=== PATIENT | female | born 1940 | race Caucasian/White ===

== ENCOUNTER 2016-05-30 13:35 | Inpatient (IN) | payer MEDICARE, MEDICAID ==
--- NOTE | 2016-05-30 13:42 | ED Physician Chart ---
Chief Complaint/HPI - Patient Information Date Seen:: 05/30/16 Time Seen:: 13:36 Chief Complaint:: agitation History of Present Illness:: 75-year-old female with acute, worsening, moderate to severe, agitation since yesterday. Has associated uncooperative behavior. Limited history due to patient's underlying psychosis and dementia History provided by EMS and EMS run sheet Historian:: EMS Review:: Nurse's Note Reviewed, EMS run form Reviewed, Transfer documents Reviewed Review of Systems - Review of Systems Other: Complete system review otherwise unremarkable except as noted in history of present illness. Past Medical History - Past Medical History Past Medical History: CVA/TIA, Dementia Family History: None Social History: Non Smoker, No Alcohol, No Drug Use, Care Facility Surgical History: None Psychiatricy History: Dementia Medication: Reviewed Family Medical History - Family Member Mother History Unknown: Yes Labs/Radiology/EKG Results - Lab Results Results: Lab Results 05/30/16 05/30/16 05/30/16 Range/Units 13:55 13:55 13:55 WBC 6.3 (4.8-10.8) Th/cmm RBC 4.49 (3.80-5.20) Mil/cmm Hgb 13.0 (11.7-16.1) gm/dL Hct 39.4 (35.0-45.0) % MCV 87.7 (81-100) fl MCH 28.9 (27.0-31.0) pg MCHC Differential 33.0 (28.0-36.0) pg RDW 12.6 (11.5-20.0) % Plt Count 256 (150-400) Th/cmm MPV 8.5 fl Neutrophils % 60.7 (40.0-80.0) % Lymphocytes % 31.0 (20.0-50.0) % Monocytes % 6.5 (2.0-10.0) % Eosinophils % 0.8 (0.0-5.0) % Basophils % 1.0 (0.0-2.0) % Sodium 135 L (136-145) mEq/L Potassium 3.6 (3.5-5.1) mEq/L Chloride 106 (98-107) mEq/L Carbon Dioxide 29.0 (21.0-31.0) mEq/L Anion Gap 3.6 L (7.0-16.0) BUN 19 (7-25) mg/dL Creatinine 0.9 (0.6-1.2) mg/dL Est GFR ( Amer) TNP Est GFR (Non-Af Amer) TNP BUN/Creatinine Ratio 21.1 Glucose 107 H (70-105) mg/dL POC Glucose (70 - 105) MG/DL Whole Bld Lactic Acid 0.72 (0.60-1.99) mmol/L Calcium 9.4 (8.6-10.3) mg/dL Total Bilirubin 0.6 (0.3-1.0) mg/dL AST 17 (13-39) U/L ALT 12 (7-52) U/L Alkaline Phosphatase 79 (34-104) U/L Total Protein 7.6 (6.0-8.3) gm/dL Albumin 4.1 (3.7-5.3) gm/dL Globulin 3.5 gm/dL Albumin/Globulin Ratio 1.2 (1.0-1.8) Urine Source Urine Color Urine Clarity (CLEAR) Urine pH Ur Specific [place] (1.005-1.030) Urine Protein (NEGATIVE) mg/dL Urine Glucose (UA) (NEGATIVE) mg/dL Urine Ketones (NEGATIVE) mg/dL Urine Blood (NEGATIVE) Urine Nitrate (NEGATIVE) Urine Bilirubin (NEGATIVE) Urine Urobilinogen (0.2 - 1.0) E.U./dL Ur Leukocyte Esterase (NEGATIVE) Urine RBC (0-5) /hpf Urine WBC (0-5) /hpf Ur Epithelial Cells (FEW) /lpf Urine Bacteria (NONE SEEN) /hpf Urine Mucus (FEW) /lpf Urine Opiates Screen (NEGATIVE) Ur Barbiturates Screen (NEGATIVE) Ur Phencyclidine Scrn (NEGATIVE) Amphetamines Screen (NEGATIVE) U Methamphetamines Scrn (NEGATIVE) U Benzodiazepines Scrn (NEGATIVE) U Cocaine Metab Screen (NEGATIVE) U Cannabinoids Screen (NEGATIVE) 05/30/16 05/30/16 05/30/16 Range/Units 13:55 14:08 14:08 WBC (4.8-10.8) Th/cmm RBC (3.80-5.20) Mil/cmm Hgb (11.7-16.1) gm/dL Hct (35.0-45.0) % MCV (81-100) fl MCH (27.0-31.0) pg MCHC Differential (28.0-36.0) pg RDW (11.5-20.0) % Plt Count (150-400) Th/cmm MPV fl Neutrophils % (40.0-80.0) % Lymphocytes % (20.0-50.0) % Monocytes % (2.0-10.0) % Eosinophils % (0.0-5.0) % Basophils % (0.0-2.0) % Sodium (136-145) mEq/L Potassium (3.5-5.1) mEq/L Chloride (98-107) mEq/L Carbon Dioxide (21.0-31.0) mEq/L Anion Gap (7.0-16.0) BUN (7-25) mg/dL Creatinine (0.6-1.2) mg/dL Est GFR ( Amer) Est GFR (Non-Af Amer) BUN/Creatinine Ratio Glucose (70-105) mg/dL POC Glucose 116 H (70 - 105) MG/DL Whole Bld Lactic Acid (0.60-1.99) mmol/L Calcium (8.6-10.3) mg/dL Total Bilirubin (0.3-1.0) mg/dL AST (13-39) U/L ALT (7-52) U/L Alkaline Phosphatase (34-104) U/L Total Protein (6.0-8.3) gm/dL Albumin (3.7-5.3) gm/dL Globulin gm/dL Albumin/Globulin Ratio (1.0-1.8) Urine Source CATH Urine Color YELLOW Urine Clarity CLEAR (CLEAR) Urine pH 5.5 Ur Specific [place] 1.025 (1.005-1.030) Urine Protein NEGATIVE (NEGATIVE) mg/dL Urine Glucose (UA) NEGATIVE (NEGATIVE) mg/dL Urine Ketones NEGATIVE (NEGATIVE) mg/dL Urine Blood NEGATIVE (NEGATIVE) Urine Nitrate NEGATIVE (NEGATIVE) Urine Bilirubin NEGATIVE (NEGATIVE) Urine Urobilinogen 0.2 (0.2 - 1.0) E.U./dL Ur Leukocyte Esterase NEGATIVE (NEGATIVE) Urine RBC NONE SEEN (0-5) /hpf Urine WBC 0-2 (0-5) /hpf Ur Epithelial Cells OCCASIONAL (FEW) /lpf Urine Bacteria FEW (NONE SEEN) /hpf Urine Mucus FEW (FEW) /lpf Urine Opiates Screen NEGATIVE (NEGATIVE) Ur Barbiturates Screen NEGATIVE (NEGATIVE) Ur Phencyclidine Scrn NEGATIVE (NEGATIVE) Amphetamines Screen NEGATIVE (NEGATIVE) U Methamphetamines Scrn NEGATIVE (NEGATIVE) U Benzodiazepines Scrn NEGATIVE (NEGATIVE) U Cocaine Metab Screen NEGATIVE (NEGATIVE) U Cannabinoids Screen NEGATIVE (NEGATIVE) ED Septic Shock - . Is Septic Shock (SBP<90, OR Lactate>4 mmol\L) present?: No Reassessment (Disposition) - Reassessment Reassessment:: Blood pressure was noted to be elevated over 120/80. There were no signs of hypertension. Discussed the findings with the patient and recommended that the patient follow up with the primary care physician regarding the elevated blood pressure. Patient cleared for admission to the geriatric psych unit Reassessment Condition:: Unchanged - Diagnosis Diagnosis:: acute Psychosis, NOS Elevated blood pressure without the diagnosis hypertension - Aftercare/Follow up Instructions Aftercare/Follow-Up Instructions:: Counseled pt regarding lab results/diagnosis & need follow up, Refer to Discharge Instructions - Patient Disposition Discharge/Transfer:: Acute Care w/in this hosp Admitted to:: [facility] Admitting Medical Physician:: Etienne Panda Admitting Psych Physician:: Faith Chen Time:: 15:32 Condition at Disposition:: Stable ED Discharge Plan - Patient Disposition Admit/Discharge/Transfer: Acute Care w/in this hosp
[2016-05-30 14:08] LABS: % EOSINOPHILS 0.8 % (0.0-5.0); % MONOCYTES 6.5 % (2.0-10.0); % NEUTROPHILS 60.7 % (40.0-80.0); HEMATOCRIT 39.4 % (35.0-45.0); MEAN CELL VOLUME 87.7 fl (81-100); MEAN CORPUSCULAR HEMOGLOBIN 28.9 pg (27.0-31.0); MEAN PLATELET VOLUME 8.5 fl; NEUTROPHILE ABSOLUTE 3.7 Th/cmm (1.8-8.0); PLATELET COUNT 256 Th/cmm (150-400); RED BLOOD COUNT 4.49 Mil/cmm (3.80-5.20); RED CELL DISTRIBUTION WIDTH 12.6 % (11.5-20.0); WHITE BLOOD COUNT 6.3 Th/cmm (4.8-10.8)
[2016-05-30 14:25] LABS: ALB/GLOB RATIO 1.2 (1.0-1.8); ALKALINE PHOSPHATASE 79 U/L (34-104); ANION GAP 3.6 (7.0-16.0); BILIRUBIN,TOTAL 0.6 mg/dL (0.3-1.0); BUN - UREA NITROGEN 19 mg/dL (7-25); BUN/CREATININE RATIO 21.1; CALCIUM SERUM 9.4 mg/dL (8.6-10.3); CHLORIDE 106 mEq/L (98-107); CREATININE - SERUM 0.9 mg/dL (0.6-1.2); GLUCOSE 107 mg/dL (70-105); POTASSIUM SERUM 3.6 mEq/L (3.5-5.1); SGOT 17 U/L (13-39); SGPT/ALT 12 U/L (7-52); SODIUM SERUM 135 mEq/L (136-145)
[2016-05-30 14:56] LABS: URINE BILIRUBIN NEGATIVE (NEGATIVE); URINE BLOOD NEGATIVE (NEGATIVE); URINE COLOR YELLOW; URINE GLUCOSE (UA) NEGATIVE (NEGATIVE); URINE KETONE NEGATIVE (NEGATIVE); URINE PH 5.5; URINE PROTEIN NEGATIVE (NEGATIVE); URINE UROBILINOGEN 0.2 E.U./dL (0.2 - 1.0)
[2016-05-30 14:57] LABS: URINE BACTERIA FEW /hpf (NONE SEEN); URINE EPITHELIAL CELLS OCCASIONAL /lpf (FEW); URINE RBC NONE SEEN /hpf (0-5); URINE WBC 0-2 /hpf (0-5)
[2016-05-30 15:03] LABS: AMPHETAMINE URINE NEGATIVE (NEGATIVE); BARBITURATES URINE NEGATIVE (NEGATIVE)
[2016-05-30 18:08] VITALS: BP 126/81
--- NOTE | 2016-05-30 18:49 | History & Physical ---
CHIEF COMPLAINT: Increased agitation. HISTORY OF PRESENT ILLNESS: This is a 75-year-old female resident of ____ who was sent here through the Emergency Room with a chief complaint of increased agitation. REVIEW OF SYSTEMS: GENERAL: The patient has no signs and symptoms of decreased weight or any weakness. HEENT: Denies any headache. EYES: Denies any eye pain. THROAT: Denies any throat pain. NECK: Denies any nuchal rigidity. CARDIOVASCULAR: Denies any chest pain, denies any palpitation. PULMONARY: Denies any shortness of breath and no coughing. GASTROINTESTINAL: No abdominal pain, no guarding, no diarrhea and no constipation. GENITOURINARY: No dysuria. MUSCULOSKELETAL: No muscle weakness and no edema. PAST MEDICAL HISTORY: Includes dementia, hypertension and insomnia. PAST SURGICAL HISTORY: Unremarkable. FAMILY HISTORY: Unremarkable. SOCIAL HISTORY: The patient came in from a long-term facility. PSYCHIATRIC HISTORY: Includes dementia and insomnia. PHYSICAL EXAMINATION: GENERAL: The patient appears to be well hydrated female. HEENT: Head is atraumatic and normocephalic. Eyes: Bilateral conjunctivae are clear for any injection. Bilateral pupils equally round and reactive to left and accommodation. Nose: Bilateral nares are patent. Throat: No deviation. NECK: No JVD and supple. CARDIOVASCULAR: S1 and S2 heard without murmur. PULMONARY: Clear to auscultation. GASTROINTESTINAL: Soft and nontender, positive bowel sounds without guarding. GENITOURINARY: Negative for CVA tenderness. MUSCULOSKELETAL: No edema and no weakness noted. ASSESSMENT: 1. Acute psychosis. 2. Insomnia. 3. Acute danger to self. 4. Gravely disabled. 5. Hypertension. PLAN: We will keep the patient as inpatient psych unit. The patient is currently on a 5150 hold due to gravely disabled. We will follow with psychiatrist to monitor the patient's behavior and medication adjustment. [facility]# [id number]
--- NOTE | 2016-05-30 21:01 | Admit Criteria Form ---
Admit Criteria Forms - Admit Criteria Diagnosis: PSYCHIATRIC DISORDERS Clinical Indications for Inpatient Care (Place 'X' for any and all applicable criteria): Ongoing inpatient care may be needed for ANY ONE of the following(1)(2)(3)(4)(6) (7)(8): [ ]I. Danger to self or others not manageable at lower level of care. [ ]II. Grave disability (eg, inability to perform self care necessary at lower level of care) [ ]III. Agitation or inappropriate behavior interfering with care for primary condition (eg, attempting to discontinue lines or drains prematurely, unable to cooperate with respiratory care) [X]IV. Severe disability or disorder indicated by ALL of the following: [X]a) Severe behavioral health disorder-related symptoms or condition indicated by ANY ONE of the following: [ ]i) Severe problem with cognition, memory, judgment, or impulse control [X]ii) Severe clinical manifestations (eg, hallucinations, delusions, other acute psychotic symptoms, liat, extreme agitation or anxiety) [X]b) Patient management at lower level of care is not feasible until acute intervention or modification is initiated. Extended stay beyond goal length of stay for the primary condition may be indicated when ANY ONE of the following is present: (1)(2)(3)(4): [ ]a) Patient is a danger to self or others and not manageable at lower level of care. [ ]b) Behavior crisis management, including physical or chemical restraints, is required and is not available at a lower level of care. [ ]c) Behavioral symptoms (e.g., agitation, somnolence, inappropriate behavior) are present, and are not manageable at a lower level of care. [ ]d) Patient cannot understand follow-up treatment and crisis plan. [ ]e) Provider and supports are not sufficiently available at lower level of care. [ ]f) Patient cannot participate (e.g., verify absence of plan for harm) and is in needed of monitoring. The original [facility] content created by [facility] has been revised. The portions of the content which have been revised are identified through the use of italic text or in bold, and [facility] has neither reviewed nor approved the modified material. All other unmodified content is copyright [facility]. Please see references footnoted in the original [facility] edition 2016 Admit Criteria Met?: Yes
--- NOTE | 2016-05-31 20:22 | General Progress Note ---
Subjective - Review of Systems Service Date: 05/31/16 Subjective: pt is confused Objective - Results Result Diagrams: 05/30/16 13:55 05/30/16 13:55 Recent Labs: Laboratory Last Values WBC 6.3 Th/cmm (4.8-10.8) 05/30/16 13:55 RBC 4.49 Mil/cmm (3.80-5.20) 05/30/16 13:55 Hgb 13.0 gm/dL (11.7-16.1) 05/30/16 13:55 Hct 39.4 % (35.0-45.0) 05/30/16 13:55 MCV 87.7 fl (81-100) 05/30/16 13:55 MCH 28.9 pg (27.0-31.0) 05/30/16 13:55 MCHC Differential 33.0 pg (28.0-36.0) 05/30/16 13:55 RDW 12.6 % (11.5-20.0) 05/30/16 13:55 Plt Count 256 Th/cmm (150-400) 05/30/16 13:55 MPV 8.5 fl 05/30/16 13:55 Neutrophils % 60.7 % (40.0-80.0) 05/30/16 13:55 Lymphocytes % 31.0 % (20.0-50.0) 05/30/16 13:55 Monocytes % 6.5 % (2.0-10.0) 05/30/16 13:55 Eosinophils % 0.8 % (0.0-5.0) 05/30/16 13:55 Basophils % 1.0 % (0.0-2.0) 05/30/16 13:55 Sodium 135 mEq/L (136-145) L 05/30/16 13:55 Potassium 3.6 mEq/L (3.5-5.1) 05/30/16 13:55 Chloride 106 mEq/L (98-107) 05/30/16 13:55 Carbon Dioxide 29.0 mEq/L (21.0-31.0) 05/30/16 13:55 Anion Gap 3.6 (7.0-16.0) L 05/30/16 13:55 BUN 19 mg/dL (7-25) 05/30/16 13:55 Creatinine 0.9 mg/dL (0.6-1.2) 05/30/16 13:55 Est GFR ( Amer) TNP 05/30/16 13:55 Est GFR (Non-Af Amer) TNP 05/30/16 13:55 BUN/Creatinine Ratio 21.1 05/30/16 13:55 Glucose 107 mg/dL (70-105) H 05/30/16 13:55 POC Glucose 116 MG/DL (70 - 105) H 05/30/16 13:55 Whole Bld Lactic Acid 0.72 mmol/L (0.60-1.99) 05/30/16 13:55 Calcium 9.4 mg/dL (8.6-10.3) 05/30/16 13:55 Total Bilirubin 0.6 mg/dL (0.3-1.0) 05/30/16 13:55 AST 17 U/L (13-39) 05/30/16 13:55 ALT 12 U/L (7-52) 05/30/16 13:55 Alkaline Phosphatase 79 U/L (34-104) 05/30/16 13:55 Total Protein 7.6 gm/dL (6.0-8.3) 05/30/16 13:55 Albumin 4.1 gm/dL (3.7-5.3) 05/30/16 13:55 Globulin 3.5 gm/dL 05/30/16 13:55 Albumin/Globulin Ratio 1.2 (1.0-1.8) 05/30/16 13:55 Urine Source CATH 05/30/16 14:08 Urine Color YELLOW 05/30/16 14:08 Urine Clarity CLEAR (CLEAR) 05/30/16 14:08 Urine pH 5.5 05/30/16 14:08 Ur Specific [place] 1.025 (1.005-1.030) 05/30/16 14:08 Urine Protein NEGATIVE mg/dL (NEGATIVE) 05/30/16 14:08 Urine Glucose (UA) NEGATIVE mg/dL (NEGATIVE) 05/30/16 14:08 Urine Ketones NEGATIVE mg/dL (NEGATIVE) 05/30/16 14:08 Urine Blood NEGATIVE (NEGATIVE) 05/30/16 14:08 Urine Nitrate NEGATIVE (NEGATIVE) 05/30/16 14:08 Urine Bilirubin NEGATIVE (NEGATIVE) 05/30/16 14:08 Urine Urobilinogen 0.2 E.U./dL (0.2 - 1.0) 05/30/16 14:08 Ur Leukocyte Esterase NEGATIVE (NEGATIVE) 05/30/16 14:08 Urine RBC NONE SEEN /hpf (0-5) 05/30/16 14:08 Urine WBC 0-2 /hpf (0-5) 05/30/16 14:08 Ur Epithelial Cells OCCASIONAL /lpf (FEW) 05/30/16 14:08 Urine Bacteria FEW /hpf (NONE SEEN) 05/30/16 14:08 Urine Mucus FEW /lpf (FEW) 05/30/16 14:08 Urine Opiates Screen NEGATIVE (NEGATIVE) 05/30/16 14:08 Ur Barbiturates Screen NEGATIVE (NEGATIVE) 05/30/16 14:08 Ur Phencyclidine Scrn NEGATIVE (NEGATIVE) 05/30/16 14:08 Amphetamines Screen NEGATIVE (NEGATIVE) 05/30/16 14:08 U Methamphetamines Scrn NEGATIVE (NEGATIVE) 05/30/16 14:08 U Benzodiazepines Scrn NEGATIVE (NEGATIVE) 05/30/16 14:08 U Cocaine Metab Screen NEGATIVE (NEGATIVE) 05/30/16 14:08 U Cannabinoids Screen NEGATIVE (NEGATIVE) 05/30/16 14:08 - Physical Exam Vitals and I&O: Vital Signs Temp 97.7 F 05/31/16 19:52 Pulse 74 05/31/16 19:52 Resp 20 05/31/16 19:52 BP 145/76 05/31/16 19:52 Pulse Ox 98 05/31/16 19:52 Intake & Output 05/31/16 05/31/16 06/01/16 06:59 18:59 06:59 Intake Total 120 1400 240 Output Total 5 Balance 120 1395 240 Intake: Oral 120 1400 240 Output: Urine 5 Other: # Voids 3 4 # Bowel Movements 1 0 Active Medications: Current Medications Memantine (Namenda) 10 mg PO BID [facility] Stop: 07/30/16 11:14 Last Admin: 05/31/16 15:53 Dose: Not Given Ondansetron HCl (Zofran Odt) 4 mg PO Q6H PRN PRN Reason: Nausea / Vomiting Stop: 07/29/16 21:07 Trazodone HCl (Desyrel) 50 mg PO HS NANCY PRN Reason: Protocol Stop: 07/30/16 20:59 General: Alert, Other (confused) Neck: Supple Cardiovascular: Regular rate, Normal S1 Lungs: Clear to auscultation Abdomen: Bowel sounds Neurological: Normal gait Psych/Mental Status: Mental status NL, Other (confused) Assessment/Plan - Problem List Patient Problems: All Active Problems INCREASED AGITATION AND AGGRESSION (Acute) Psychosis (Acute) F29 psychosis (Acute) - Plan Plan: as per psych
--- NOTE | 2016-05-31 22:09 | Psychosocial Evaluation ---
PSYCHIATRIC INITIAL EVALUATION AND MENTAL STATUS EXAMINATION PHYSICIAN: Faith Chen M.D. CHIEF COMPLAINT: Confusion and agitation. HISTORY OF PRESENT ILLNESS: The patient is a 75-year-old female who resides in [facility]. The patient has been confused and has been easily agitated. The patient has not been recognizing her son lately and has been thinking him different person. She also has been thinking that the [facility] is her home. The patient also has been agitated with the staff when they tried to help her with her ADLs and has been increasingly irritable and in angry mood. The patient also has been feeling angry for no apparent reason and at times has been mumbling in [place] language ____ herself. The patient also has been depressed. She also has been refusing care and getting angry and agitated when the staff tries to help with her basic needs. PAST PSYCHIATRIC HISTORY: The patient has history of dementia and has been taking Namenda 5 mg twice a day. She also has a history of depression, but not taking any antidepressant medications. PAST MEDICAL HISTORY: The patient has history of osteoarthritis. FAMILY PSYCHIATRIC HISTORY: Not known. SOCIAL HISTORY: The patient lives in [facility]. No known alcohol or any street drug use. ALLERGIES: Penicillin. MENTAL STATUS EXAMINATION: The patient appears her stated age. Anxious. Speaks [place] mainly. Disheveled and confused. The staff helped with translation. The patient denied auditory or visual hallucinations, but seems to be actively responding to stimuli. The patient gets agitated with the questions and became uncooperative after a little bit of time. The patient denied suicidal or homicidal ideations. The patient is alert, but seems to be disoriented to time, place, person and situation. Impaired immediate and recent memory, but intact remote memory. Poor insight. Poor judgment. She seems to be of average intelligence based on her ____. ASSESSMENT: PRIMARY DIAGNOSIS: Unspecified psychosis. SECONDARY DIAGNOSIS: Dementia, moderate and severe with psychotic features. TREATMENT PLAN: We will monitor the patient's behavior closely. We will increase Namenda to 10 mg everyday. We will work on her poor impulse control and we will continue to follow up closely. ESTIMATED LENGTH OF STAY: 7-10 days. THE PATIENT'S STRENGTHS AND WEAKNESSES: The patient's strength is not clear at this time except that she has supportive family. Weakness is her poor impulse control and her confusion and dementia. AFTER DISCHARGE PLAN: Outpatient treatment and followup will continue as an outpatient. CRITERIA FOR DISCHARGE: The patient will not be confused or agitated and will stabilize psychotropic medications and will establish outpatient treatment plans. [facility]# [id number]
--- NOTE | 2016-06-01 09:10 | General Progress Note ---
Subjective - Review of Systems Events since last encounter: no change Subjective: pt is confused Objective - Results Result Diagrams: 05/30/16 13:55 05/30/16 13:55 Recent Labs: Laboratory Last Values WBC 6.3 Th/cmm (4.8-10.8) 05/30/16 13:55 RBC 4.49 Mil/cmm (3.80-5.20) 05/30/16 13:55 Hgb 13.0 gm/dL (11.7-16.1) 05/30/16 13:55 Hct 39.4 % (35.0-45.0) 05/30/16 13:55 MCV 87.7 fl (81-100) 05/30/16 13:55 MCH 28.9 pg (27.0-31.0) 05/30/16 13:55 MCHC Differential 33.0 pg (28.0-36.0) 05/30/16 13:55 RDW 12.6 % (11.5-20.0) 05/30/16 13:55 Plt Count 256 Th/cmm (150-400) 05/30/16 13:55 MPV 8.5 fl 05/30/16 13:55 Neutrophils % 60.7 % (40.0-80.0) 05/30/16 13:55 Lymphocytes % 31.0 % (20.0-50.0) 05/30/16 13:55 Monocytes % 6.5 % (2.0-10.0) 05/30/16 13:55 Eosinophils % 0.8 % (0.0-5.0) 05/30/16 13:55 Basophils % 1.0 % (0.0-2.0) 05/30/16 13:55 Sodium 135 mEq/L (136-145) L 05/30/16 13:55 Potassium 3.6 mEq/L (3.5-5.1) 05/30/16 13:55 Chloride 106 mEq/L (98-107) 05/30/16 13:55 Carbon Dioxide 29.0 mEq/L (21.0-31.0) 05/30/16 13:55 Anion Gap 3.6 (7.0-16.0) L 05/30/16 13:55 BUN 19 mg/dL (7-25) 05/30/16 13:55 Creatinine 0.9 mg/dL (0.6-1.2) 05/30/16 13:55 Est GFR ( Amer) TNP 05/30/16 13:55 Est GFR (Non-Af Amer) TNP 05/30/16 13:55 BUN/Creatinine Ratio 21.1 05/30/16 13:55 Glucose 107 mg/dL (70-105) H 05/30/16 13:55 POC Glucose 116 MG/DL (70 - 105) H 05/30/16 13:55 Whole Bld Lactic Acid 0.72 mmol/L (0.60-1.99) 05/30/16 13:55 Calcium 9.4 mg/dL (8.6-10.3) 05/30/16 13:55 Total Bilirubin 0.6 mg/dL (0.3-1.0) 05/30/16 13:55 AST 17 U/L (13-39) 05/30/16 13:55 ALT 12 U/L (7-52) 05/30/16 13:55 Alkaline Phosphatase 79 U/L (34-104) 05/30/16 13:55 Total Protein 7.6 gm/dL (6.0-8.3) 05/30/16 13:55 Albumin 4.1 gm/dL (3.7-5.3) 05/30/16 13:55 Globulin 3.5 gm/dL 05/30/16 13:55 Albumin/Globulin Ratio 1.2 (1.0-1.8) 05/30/16 13:55 Urine Source CATH 05/30/16 14:08 Urine Color YELLOW 05/30/16 14:08 Urine Clarity CLEAR (CLEAR) 05/30/16 14:08 Urine pH 5.5 05/30/16 14:08 Ur Specific [place] 1.025 (1.005-1.030) 05/30/16 14:08 Urine Protein NEGATIVE mg/dL (NEGATIVE) 05/30/16 14:08 Urine Glucose (UA) NEGATIVE mg/dL (NEGATIVE) 05/30/16 14:08 Urine Ketones NEGATIVE mg/dL (NEGATIVE) 05/30/16 14:08 Urine Blood NEGATIVE (NEGATIVE) 05/30/16 14:08 Urine Nitrate NEGATIVE (NEGATIVE) 05/30/16 14:08 Urine Bilirubin NEGATIVE (NEGATIVE) 05/30/16 14:08 Urine Urobilinogen 0.2 E.U./dL (0.2 - 1.0) 05/30/16 14:08 Ur Leukocyte Esterase NEGATIVE (NEGATIVE) 05/30/16 14:08 Urine RBC NONE SEEN /hpf (0-5) 05/30/16 14:08 Urine WBC 0-2 /hpf (0-5) 05/30/16 14:08 Ur Epithelial Cells OCCASIONAL /lpf (FEW) 05/30/16 14:08 Urine Bacteria FEW /hpf (NONE SEEN) 05/30/16 14:08 Urine Mucus FEW /lpf (FEW) 05/30/16 14:08 Urine Opiates Screen NEGATIVE (NEGATIVE) 05/30/16 14:08 Ur Barbiturates Screen NEGATIVE (NEGATIVE) 05/30/16 14:08 Ur Phencyclidine Scrn NEGATIVE (NEGATIVE) 05/30/16 14:08 Amphetamines Screen NEGATIVE (NEGATIVE) 05/30/16 14:08 U Methamphetamines Scrn NEGATIVE (NEGATIVE) 05/30/16 14:08 U Benzodiazepines Scrn NEGATIVE (NEGATIVE) 05/30/16 14:08 U Cocaine Metab Screen NEGATIVE (NEGATIVE) 05/30/16 14:08 U Cannabinoids Screen NEGATIVE (NEGATIVE) 05/30/16 14:08 - Physical Exam Vitals and I&O: Vital Signs Temp 98.2 F 06/01/16 05:51 Pulse 84 06/01/16 05:51 Resp 20 06/01/16 05:51 BP 103/63 06/01/16 05:51 Pulse Ox 94 06/01/16 05:51 Intake & Output 05/31/16 06/01/16 06/01/16 18:59 06:59 18:59 Intake Total 1400 240 Output Total 5 Balance 1395 240 Intake: Oral 1400 240 Output: Urine 5 Other: # Voids 2 # Bowel Movements 1 0 Active Medications: Current Medications Memantine (Namenda) 10 mg PO BID [facility] Stop: 07/30/16 11:14 Last Admin: 05/31/16 15:53 Dose: Not Given Ondansetron HCl (Zofran Odt) 4 mg PO Q6H PRN PRN Reason: Nausea / Vomiting Stop: 07/29/16 21:07 Trazodone HCl (Desyrel) 50 mg PO HS NANCY PRN Reason: Protocol Stop: 07/30/16 20:59 Last Admin: 05/31/16 20:39 Dose: 50 mg General: No acute distress HEENT: Atraumatic Neck: Supple Cardiovascular: Regular rate Abdomen: Bowel sounds Assessment/Plan - Problem List Patient Problems: All Active Problems INCREASED AGITATION AND AGGRESSION (Acute) Psychosis (Acute) F29 psychosis (Acute) - Plan Plan: as per psych as problems arise
--- NOTE | 2016-06-02 12:03 | General Progress Note ---
Subjective - Review of Systems Events since last encounter: no distress Subjective: pt is confused Objective - Results Result Diagrams: 05/30/16 13:55 05/30/16 13:55 Recent Labs: Laboratory Last Values WBC 6.3 Th/cmm (4.8-10.8) 05/30/16 13:55 RBC 4.49 Mil/cmm (3.80-5.20) 05/30/16 13:55 Hgb 13.0 gm/dL (11.7-16.1) 05/30/16 13:55 Hct 39.4 % (35.0-45.0) 05/30/16 13:55 MCV 87.7 fl (81-100) 05/30/16 13:55 MCH 28.9 pg (27.0-31.0) 05/30/16 13:55 MCHC Differential 33.0 pg (28.0-36.0) 05/30/16 13:55 RDW 12.6 % (11.5-20.0) 05/30/16 13:55 Plt Count 256 Th/cmm (150-400) 05/30/16 13:55 MPV 8.5 fl 05/30/16 13:55 Neutrophils % 60.7 % (40.0-80.0) 05/30/16 13:55 Lymphocytes % 31.0 % (20.0-50.0) 05/30/16 13:55 Monocytes % 6.5 % (2.0-10.0) 05/30/16 13:55 Eosinophils % 0.8 % (0.0-5.0) 05/30/16 13:55 Basophils % 1.0 % (0.0-2.0) 05/30/16 13:55 Sodium 135 mEq/L (136-145) L 05/30/16 13:55 Potassium 3.6 mEq/L (3.5-5.1) 05/30/16 13:55 Chloride 106 mEq/L (98-107) 05/30/16 13:55 Carbon Dioxide 29.0 mEq/L (21.0-31.0) 05/30/16 13:55 Anion Gap 3.6 (7.0-16.0) L 05/30/16 13:55 BUN 19 mg/dL (7-25) 05/30/16 13:55 Creatinine 0.9 mg/dL (0.6-1.2) 05/30/16 13:55 Est GFR ( Amer) TNP 05/30/16 13:55 Est GFR (Non-Af Amer) TNP 05/30/16 13:55 BUN/Creatinine Ratio 21.1 05/30/16 13:55 Glucose 107 mg/dL (70-105) H 05/30/16 13:55 POC Glucose 116 MG/DL (70 - 105) H 05/30/16 13:55 Whole Bld Lactic Acid 0.72 mmol/L (0.60-1.99) 05/30/16 13:55 Calcium 9.4 mg/dL (8.6-10.3) 05/30/16 13:55 Total Bilirubin 0.6 mg/dL (0.3-1.0) 05/30/16 13:55 AST 17 U/L (13-39) 05/30/16 13:55 ALT 12 U/L (7-52) 05/30/16 13:55 Alkaline Phosphatase 79 U/L (34-104) 05/30/16 13:55 Total Protein 7.6 gm/dL (6.0-8.3) 05/30/16 13:55 Albumin 4.1 gm/dL (3.7-5.3) 05/30/16 13:55 Globulin 3.5 gm/dL 05/30/16 13:55 Albumin/Globulin Ratio 1.2 (1.0-1.8) 05/30/16 13:55 Urine Source CATH 05/30/16 14:08 Urine Color YELLOW 05/30/16 14:08 Urine Clarity CLEAR (CLEAR) 05/30/16 14:08 Urine pH 5.5 05/30/16 14:08 Ur Specific [place] 1.025 (1.005-1.030) 05/30/16 14:08 Urine Protein NEGATIVE mg/dL (NEGATIVE) 05/30/16 14:08 Urine Glucose (UA) NEGATIVE mg/dL (NEGATIVE) 05/30/16 14:08 Urine Ketones NEGATIVE mg/dL (NEGATIVE) 05/30/16 14:08 Urine Blood NEGATIVE (NEGATIVE) 05/30/16 14:08 Urine Nitrate NEGATIVE (NEGATIVE) 05/30/16 14:08 Urine Bilirubin NEGATIVE (NEGATIVE) 05/30/16 14:08 Urine Urobilinogen 0.2 E.U./dL (0.2 - 1.0) 05/30/16 14:08 Ur Leukocyte Esterase NEGATIVE (NEGATIVE) 05/30/16 14:08 Urine RBC NONE SEEN /hpf (0-5) 05/30/16 14:08 Urine WBC 0-2 /hpf (0-5) 05/30/16 14:08 Ur Epithelial Cells OCCASIONAL /lpf (FEW) 05/30/16 14:08 Urine Bacteria FEW /hpf (NONE SEEN) 05/30/16 14:08 Urine Mucus FEW /lpf (FEW) 05/30/16 14:08 Urine Opiates Screen NEGATIVE (NEGATIVE) 05/30/16 14:08 Ur Barbiturates Screen NEGATIVE (NEGATIVE) 05/30/16 14:08 Ur Phencyclidine Scrn NEGATIVE (NEGATIVE) 05/30/16 14:08 Amphetamines Screen NEGATIVE (NEGATIVE) 05/30/16 14:08 U Methamphetamines Scrn NEGATIVE (NEGATIVE) 05/30/16 14:08 U Benzodiazepines Scrn NEGATIVE (NEGATIVE) 05/30/16 14:08 U Cocaine Metab Screen NEGATIVE (NEGATIVE) 05/30/16 14:08 U Cannabinoids Screen NEGATIVE (NEGATIVE) 05/30/16 14:08 - Physical Exam Vitals and I&O: Vital Signs Temp 98.0 F 06/01/16 14:00 Pulse 83 06/02/16 08:00 Resp 20 06/02/16 08:00 BP 110/60 06/01/16 14:00 Pulse Ox 96 06/01/16 14:00 Intake & Output 06/01/16 06/02/16 06/02/16 18:59 06:59 18:59 Intake Total 960 Balance 960 Intake: Oral 960 Other: # Voids 3 # Bowel Movements 1 Active Medications: Current Medications Memantine (Namenda) 10 mg PO BID NANCY Stop: 07/30/16 11:14 Last Admin: 06/02/16 09:51 Dose: 10 mg Ondansetron HCl (Zofran Odt) 4 mg PO Q6H PRN PRN Reason: Nausea / Vomiting Stop: 07/29/16 21:07 Quetiapine Fumarate (Seroquel) 12.5 mg PO BID NANCY PRN Reason: Protocol Stop: 08/01/16 08:59 Last Admin: 06/02/16 09:51 Dose: 12.5 mg Trazodone HCl (Desyrel) 50 mg PO HS NANCY PRN Reason: Protocol Stop: 07/30/16 20:59 Last Admin: 06/01/16 20:29 Dose: 50 mg General: No acute distress HEENT: Atraumatic Neck: Supple Cardiovascular: Regular rate Abdomen: Bowel sounds Assessment/Plan - Problem List Patient Problems: All Active Problems INCREASED AGITATION AND AGGRESSION (Acute) Psychosis (Acute) F29 psychosis (Acute) - Plan Plan: as per psych as problems arise
--- NOTE | 2016-06-02 15:40 | Progress Notes ---
PSYCHIATRIC PROGRESS NOTE SUBJECTIVE: Chart reviewed and the patient interviewed. Also discussed the patient's condition with the staff and reviewed records and labs. The patient remains confused. She also is still restless, and she is pacing up and down the unit in angry and irritable mood. The patient also is unable to follow directions ____ trying to redirect her. The patient also is easily agitated. During interview, the patient is disheveled and she is having poor hygiene and she is rambling in [place] language in words, but difficult to understand. ASSESSMENT: The patient is still psychotic and agitated and considered to be gravely disabled and dangerous to others. TREATMENT PLAN: Continue to monitor her behavior and her condition closely. Also Namenda was increased to 10 mg twice a day. We will continue the same dose and considering adding mood stabilizer to help with her irritability and her psychosis. JOB# [id number]
--- NOTE | 2016-06-02 15:55 | Progress Notes ---
SUBJECTIVE: Chart reviewed and the patient interviewed. Also discussed the patient's condition with the staff and reviewed records and labs. The patient is still severely irritable and in angry mood. The patient also is still confused. The patient also is rambling in [place] language with disorganized thoughts and words. The patient also is still easily agitated, and she is aggressive and is getting violent with the staff when they tried to help her with her ADLs. She also is still angry and is still confused and unable to follow any of the staff's directions. The patient also is still unable to recognize simple things because of her confusion. She is still unable to mention her son's name or simple information and seems to be forgetful. She also is still disheveled and personal hygiene is poor. Also, she needs to be reminded, was eating and drinking. ASSESSMENT: The patient is still psychotic and agitated. TREATMENT PLAN: We will continue monitoring her behavior and her condition closely. Also, we will start the patient on Seroquel 12.5 mg twice a day. Also continue to work on behavioral modification and we will continue to follow up. JOB# [id number]
--- NOTE | 2016-06-03 09:38 | General Progress Note ---
Subjective - Review of Systems Events since last encounter: patient still anxious Subjective: pt is confused Objective - Results Result Diagrams: 05/30/16 13:55 05/30/16 13:55 Recent Labs: Laboratory Last Values WBC 6.3 Th/cmm (4.8-10.8) 05/30/16 13:55 RBC 4.49 Mil/cmm (3.80-5.20) 05/30/16 13:55 Hgb 13.0 gm/dL (11.7-16.1) 05/30/16 13:55 Hct 39.4 % (35.0-45.0) 05/30/16 13:55 MCV 87.7 fl (81-100) 05/30/16 13:55 MCH 28.9 pg (27.0-31.0) 05/30/16 13:55 MCHC Differential 33.0 pg (28.0-36.0) 05/30/16 13:55 RDW 12.6 % (11.5-20.0) 05/30/16 13:55 Plt Count 256 Th/cmm (150-400) 05/30/16 13:55 MPV 8.5 fl 05/30/16 13:55 Neutrophils % 60.7 % (40.0-80.0) 05/30/16 13:55 Lymphocytes % 31.0 % (20.0-50.0) 05/30/16 13:55 Monocytes % 6.5 % (2.0-10.0) 05/30/16 13:55 Eosinophils % 0.8 % (0.0-5.0) 05/30/16 13:55 Basophils % 1.0 % (0.0-2.0) 05/30/16 13:55 Sodium 135 mEq/L (136-145) L 05/30/16 13:55 Potassium 3.6 mEq/L (3.5-5.1) 05/30/16 13:55 Chloride 106 mEq/L (98-107) 05/30/16 13:55 Carbon Dioxide 29.0 mEq/L (21.0-31.0) 05/30/16 13:55 Anion Gap 3.6 (7.0-16.0) L 05/30/16 13:55 BUN 19 mg/dL (7-25) 05/30/16 13:55 Creatinine 0.9 mg/dL (0.6-1.2) 05/30/16 13:55 Est GFR ( Amer) TNP 05/30/16 13:55 Est GFR (Non-Af Amer) TNP 05/30/16 13:55 BUN/Creatinine Ratio 21.1 05/30/16 13:55 Glucose 107 mg/dL (70-105) H 05/30/16 13:55 POC Glucose 116 MG/DL (70 - 105) H 05/30/16 13:55 Whole Bld Lactic Acid 0.72 mmol/L (0.60-1.99) 05/30/16 13:55 Calcium 9.4 mg/dL (8.6-10.3) 05/30/16 13:55 Total Bilirubin 0.6 mg/dL (0.3-1.0) 05/30/16 13:55 AST 17 U/L (13-39) 05/30/16 13:55 ALT 12 U/L (7-52) 05/30/16 13:55 Alkaline Phosphatase 79 U/L (34-104) 05/30/16 13:55 Total Protein 7.6 gm/dL (6.0-8.3) 05/30/16 13:55 Albumin 4.1 gm/dL (3.7-5.3) 05/30/16 13:55 Globulin 3.5 gm/dL 05/30/16 13:55 Albumin/Globulin Ratio 1.2 (1.0-1.8) 05/30/16 13:55 Urine Source CATH 05/30/16 14:08 Urine Color YELLOW 05/30/16 14:08 Urine Clarity CLEAR (CLEAR) 05/30/16 14:08 Urine pH 5.5 05/30/16 14:08 Ur Specific [place] 1.025 (1.005-1.030) 05/30/16 14:08 Urine Protein NEGATIVE mg/dL (NEGATIVE) 05/30/16 14:08 Urine Glucose (UA) NEGATIVE mg/dL (NEGATIVE) 05/30/16 14:08 Urine Ketones NEGATIVE mg/dL (NEGATIVE) 05/30/16 14:08 Urine Blood NEGATIVE (NEGATIVE) 05/30/16 14:08 Urine Nitrate NEGATIVE (NEGATIVE) 05/30/16 14:08 Urine Bilirubin NEGATIVE (NEGATIVE) 05/30/16 14:08 Urine Urobilinogen 0.2 E.U./dL (0.2 - 1.0) 05/30/16 14:08 Ur Leukocyte Esterase NEGATIVE (NEGATIVE) 05/30/16 14:08 Urine RBC NONE SEEN /hpf (0-5) 05/30/16 14:08 Urine WBC 0-2 /hpf (0-5) 05/30/16 14:08 Ur Epithelial Cells OCCASIONAL /lpf (FEW) 05/30/16 14:08 Urine Bacteria FEW /hpf (NONE SEEN) 05/30/16 14:08 Urine Mucus FEW /lpf (FEW) 05/30/16 14:08 Urine Opiates Screen NEGATIVE (NEGATIVE) 05/30/16 14:08 Ur Barbiturates Screen NEGATIVE (NEGATIVE) 05/30/16 14:08 Ur Phencyclidine Scrn NEGATIVE (NEGATIVE) 05/30/16 14:08 Amphetamines Screen NEGATIVE (NEGATIVE) 05/30/16 14:08 U Methamphetamines Scrn NEGATIVE (NEGATIVE) 05/30/16 14:08 U Benzodiazepines Scrn NEGATIVE (NEGATIVE) 05/30/16 14:08 U Cocaine Metab Screen NEGATIVE (NEGATIVE) 05/30/16 14:08 U Cannabinoids Screen NEGATIVE (NEGATIVE) 05/30/16 14:08 - Physical Exam Vitals and I&O: Vital Signs Temp 97.6 F 06/03/16 06:49 Pulse 75 06/03/16 06:49 Resp 18 06/03/16 06:49 BP 135/84 06/03/16 06:49 Pulse Ox 97 06/03/16 06:49 Intake & Output 06/02/16 06/03/16 06/03/16 18:59 06:59 18:59 Intake Total 960 Balance 960 Weight (lbs) 50.167 kg Intake: Oral 960 Other: # Voids 3 2 # Bowel Movements 1 Active Medications: Current Medications Memantine (Namenda) 10 mg PO BID [facility] Stop: 07/30/16 11:14 Last Admin: 06/03/16 08:51 Dose: 10 mg Ondansetron HCl (Zofran Odt) 4 mg PO Q6H PRN PRN Reason: Nausea / Vomiting Stop: 07/29/16 21:07 Quetiapine Fumarate (Seroquel) 12.5 mg PO BID NANCY PRN Reason: Protocol Stop: 08/01/16 08:59 Last Admin: 06/03/16 08:51 Dose: 12.5 mg Trazodone HCl (Desyrel) 50 mg PO HS NANCY PRN Reason: Protocol Stop: 07/30/16 20:59 Last Admin: 06/02/16 21:07 Dose: Not Given General: No acute distress HEENT: Atraumatic Neck: Supple Cardiovascular: Regular rate Abdomen: Bowel sounds Assessment/Plan - Problem List Patient Problems: All Active Problems INCREASED AGITATION AND AGGRESSION (Acute) Psychosis (Acute) F29 psychosis (Acute) - Plan Plan: as per psych as problems arise Nutritional Asmnt/Malnutr-PDOC - Dietary Evaluation Malnutrition Findings (Please click <Entered> for more info): Nutritional Asmnt/Malnutrition Start: 06/02/16 17: 42 Text: Status: Complete Freq: Document 06/02/16 17:42 GSUN (Rec: 06/02/16 17:54 GSUN [email or web address]) Nutritional Asmnt/Malnutrition Patient General Information Nutritional Screening Moderate Risk Screening Diagnosis Acute psychosis, insomnia, acute danger to self, gravely disabled Pertinent Medical Hx/Surgical Hx Dementia, HTN, insomnia Subjective Information 75 year old female from SNF. Pt was resting with eyes closed, made eye contact with RD upon RD's call. Pt mumbled a few words and closed eyes again, unable to interview. Avg PO intake 88% past 6 meals recorded, meeting nutritional needs. No concerns per nursing staff. Mild wasting of temporals noted. Current Diet Order/ Nutrition Support Low cholesterol, no pork Pertinent Medications Zofran, Seroquel Pertinent Labs Reviewed. Nutritional Hx/Data Height 1.57 m Height (Calculated Centimeters) 157.5 Current Weight (lbs) 50.167 kg Weight (Calculated Kilograms) 50.2 Weight (Calculated Grams) 48432.3 [place] Body Weight 110lb Weight Status Approriate GI Symptoms Food Allergies No Skin Integrity/Comment: [place] 19. Skin intact. Current %PO Good (75-100%) Estimated Nutritional Goals BEE in Kcals: Using Current wt Calories/Kcals/Kg CBW 110.6lb/50kg Kcals Calculated 1250-1500kcal (25-30kcal/kg) Protein: Using Current wt Protein Calculated 50g (1g/kg) Fluid: ml 1250-1500ml (1ml/kcal) Nutritional Problem 1. Problem Problem No nutritional problems at this time. Intervention/Recommendation Comments 1. Continue with current diet. Avg PO intake is adequate. 2. Monitor glucose. Slight hyperglycemia noted. Adjust diet if needed. Expected Outcomes/Goals Expected Outcomes/Goals 1. PO intake continue to meet at least 75% of estimated nutritional needs.
--- NOTE | 2016-06-04 01:22 | Progress Notes ---
Chart reviewed and the patient interviewed. Also discussed the patient's condition with the staff and reviewed records and labs. The patient remains confused and agitated. The patient also is still suspicious and paranoid. She also is still aggressive with the staff when they try to help her with her ADLs. The patient also is still forgetful and she is still unable to identify basic needs or surroundings and needs lots of redirections. On the other hand, the patient continues to comply with taking her medications and no side effects of medications. ASSESSMENT: The patient is still confused and considered to be gravely disabled. TREATMENT PLAN: Will continue to monitor her behavior and her condition closely. Also we will continue to ____. [facility]# [id number]
--- NOTE | 2016-06-04 09:06 | General Progress Note ---
Subjective - Review of Systems Events since last encounter: nochange Subjective: pt is confused Objective - Results Result Diagrams: 05/30/16 13:55 05/30/16 13:55 Recent Labs: Laboratory Last Values WBC 6.3 Th/cmm (4.8-10.8) 05/30/16 13:55 RBC 4.49 Mil/cmm (3.80-5.20) 05/30/16 13:55 Hgb 13.0 gm/dL (11.7-16.1) 05/30/16 13:55 Hct 39.4 % (35.0-45.0) 05/30/16 13:55 MCV 87.7 fl (81-100) 05/30/16 13:55 MCH 28.9 pg (27.0-31.0) 05/30/16 13:55 MCHC Differential 33.0 pg (28.0-36.0) 05/30/16 13:55 RDW 12.6 % (11.5-20.0) 05/30/16 13:55 Plt Count 256 Th/cmm (150-400) 05/30/16 13:55 MPV 8.5 fl 05/30/16 13:55 Neutrophils % 60.7 % (40.0-80.0) 05/30/16 13:55 Lymphocytes % 31.0 % (20.0-50.0) 05/30/16 13:55 Monocytes % 6.5 % (2.0-10.0) 05/30/16 13:55 Eosinophils % 0.8 % (0.0-5.0) 05/30/16 13:55 Basophils % 1.0 % (0.0-2.0) 05/30/16 13:55 Sodium 135 mEq/L (136-145) L 05/30/16 13:55 Potassium 3.6 mEq/L (3.5-5.1) 05/30/16 13:55 Chloride 106 mEq/L (98-107) 05/30/16 13:55 Carbon Dioxide 29.0 mEq/L (21.0-31.0) 05/30/16 13:55 Anion Gap 3.6 (7.0-16.0) L 05/30/16 13:55 BUN 19 mg/dL (7-25) 05/30/16 13:55 Creatinine 0.9 mg/dL (0.6-1.2) 05/30/16 13:55 Est GFR ( Amer) TNP 05/30/16 13:55 Est GFR (Non-Af Amer) TNP 05/30/16 13:55 BUN/Creatinine Ratio 21.1 05/30/16 13:55 Glucose 107 mg/dL (70-105) H 05/30/16 13:55 POC Glucose 116 MG/DL (70 - 105) H 05/30/16 13:55 Whole Bld Lactic Acid 0.72 mmol/L (0.60-1.99) 05/30/16 13:55 Calcium 9.4 mg/dL (8.6-10.3) 05/30/16 13:55 Total Bilirubin 0.6 mg/dL (0.3-1.0) 05/30/16 13:55 AST 17 U/L (13-39) 05/30/16 13:55 ALT 12 U/L (7-52) 05/30/16 13:55 Alkaline Phosphatase 79 U/L (34-104) 05/30/16 13:55 Total Protein 7.6 gm/dL (6.0-8.3) 05/30/16 13:55 Albumin 4.1 gm/dL (3.7-5.3) 05/30/16 13:55 Globulin 3.5 gm/dL 05/30/16 13:55 Albumin/Globulin Ratio 1.2 (1.0-1.8) 05/30/16 13:55 Urine Source CATH 05/30/16 14:08 Urine Color YELLOW 05/30/16 14:08 Urine Clarity CLEAR (CLEAR) 05/30/16 14:08 Urine pH 5.5 05/30/16 14:08 Ur Specific [place] 1.025 (1.005-1.030) 05/30/16 14:08 Urine Protein NEGATIVE mg/dL (NEGATIVE) 05/30/16 14:08 Urine Glucose (UA) NEGATIVE mg/dL (NEGATIVE) 05/30/16 14:08 Urine Ketones NEGATIVE mg/dL (NEGATIVE) 05/30/16 14:08 Urine Blood NEGATIVE (NEGATIVE) 05/30/16 14:08 Urine Nitrate NEGATIVE (NEGATIVE) 05/30/16 14:08 Urine Bilirubin NEGATIVE (NEGATIVE) 05/30/16 14:08 Urine Urobilinogen 0.2 E.U./dL (0.2 - 1.0) 05/30/16 14:08 Ur Leukocyte Esterase NEGATIVE (NEGATIVE) 05/30/16 14:08 Urine RBC NONE SEEN /hpf (0-5) 05/30/16 14:08 Urine WBC 0-2 /hpf (0-5) 05/30/16 14:08 Ur Epithelial Cells OCCASIONAL /lpf (FEW) 05/30/16 14:08 Urine Bacteria FEW /hpf (NONE SEEN) 05/30/16 14:08 Urine Mucus FEW /lpf (FEW) 05/30/16 14:08 Urine Opiates Screen NEGATIVE (NEGATIVE) 05/30/16 14:08 Ur Barbiturates Screen NEGATIVE (NEGATIVE) 05/30/16 14:08 Ur Phencyclidine Scrn NEGATIVE (NEGATIVE) 05/30/16 14:08 Amphetamines Screen NEGATIVE (NEGATIVE) 05/30/16 14:08 U Methamphetamines Scrn NEGATIVE (NEGATIVE) 05/30/16 14:08 U Benzodiazepines Scrn NEGATIVE (NEGATIVE) 05/30/16 14:08 U Cocaine Metab Screen NEGATIVE (NEGATIVE) 05/30/16 14:08 U Cannabinoids Screen NEGATIVE (NEGATIVE) 05/30/16 14:08 - Physical Exam Vitals and I&O: Vital Signs Temp 97.3 F 06/04/16 06:39 Pulse 67 06/04/16 06:39 Resp 19 06/04/16 06:39 BP 135/73 06/04/16 06:39 Pulse Ox 96 06/04/16 06:39 Intake & Output 06/03/16 06/04/16 06/04/16 18:59 06:59 18:59 Intake Total 700 240 Balance 700 240 Intake: Oral 700 240 Other: # Voids 2 2 # Bowel Movements 2 Stool Characteristics Formed Formed Active Medications: Current Medications Memantine (Namenda) 10 mg PO BID [facility] Stop: 07/30/16 11:14 Last Admin: 06/04/16 08:13 Dose: 10 mg Ondansetron HCl (Zofran Odt) 4 mg PO Q6H PRN PRN Reason: Nausea / Vomiting Stop: 07/29/16 21:07 Quetiapine Fumarate (Seroquel) 12.5 mg PO BID [facility] PRN Reason: Protocol Stop: 08/01/16 08:59 Last Admin: 06/04/16 08:13 Dose: 12.5 mg Trazodone HCl (Desyrel) 50 mg PO HS NANCY PRN Reason: Protocol Stop: 07/30/16 20:59 Last Admin: 06/03/16 20:54 Dose: 50 mg General: No acute distress HEENT: Atraumatic Neck: Supple Lungs: Clear to auscultation Assessment/Plan - Problem List Patient Problems: All Active Problems INCREASED AGITATION AND AGGRESSION (Acute) Psychosis (Acute) F29 psychosis (Acute) - Plan Plan: as per psych as problems arise Nutritional Asmnt/Malnutr-PDOC - Dietary Evaluation Malnutrition Findings (Please click <Entered> for more info): Nutritional Asmnt/Malnutrition Start: 06/02/16 17: 42 Text: Status: Complete Freq: Document 06/02/16 17:42 GSUN (Rec: 06/02/16 17:54 GSUN [email or web address]) Nutritional Asmnt/Malnutrition Patient General Information Nutritional Screening Moderate Risk Screening Diagnosis Acute psychosis, insomnia, acute danger to self, gravely disabled Pertinent Medical Hx/Surgical Hx Dementia, HTN, insomnia Subjective Information 75 year old female from SNF. Pt was resting with eyes closed, made eye contact with RD upon RD's call. Pt mumbled a few words and closed eyes again, unable to interview. Avg PO intake 88% past 6 meals recorded, meeting nutritional needs. No concerns per nursing staff. Mild wasting of temporals noted. Current Diet Order/ Nutrition Support Low cholesterol, no pork Pertinent Medications Zofran, Seroquel Pertinent Labs Reviewed. Nutritional Hx/Data Height 1.57 m Height (Calculated Centimeters) 157.5 Current Weight (lbs) 50.167 kg Weight (Calculated Kilograms) 50.2 Weight (Calculated Grams) 91486.3 [place] Body Weight 110lb Weight Status Approriate GI Symptoms Food Allergies No Skin Integrity/Comment: [place] 19. Skin intact. Current %PO Good (75-100%) Estimated Nutritional Goals BEE in Kcals: Using Current wt Calories/Kcals/Kg CBW 110.6lb/50kg Kcals Calculated 1250-1500kcal (25-30kcal/kg) Protein: Using Current wt Protein Calculated 50g (1g/kg) Fluid: ml 1250-1500ml (1ml/kcal) Nutritional Problem 1. Problem Problem No nutritional problems at this time. Intervention/Recommendation Comments 1. Continue with current diet. Avg PO intake is adequate. 2. Monitor glucose. Slight hyperglycemia noted. Adjust diet if needed. Expected Outcomes/Goals Expected Outcomes/Goals 1. PO intake continue to meet at least 75% of estimated nutritional needs.
--- NOTE | 2016-06-04 22:42 | Progress Notes ---
Covering for Dr. Chen. Case was discussed with staff of the patient, reviewed records. This is a 75-year-old female who was admitted on 05/30/2016, because of confusion and agitation. She was at [facility]. Has been confused as well as agitated, not recognizing her son lately. Has been thinking of him as a different person. She has been thinking that the [facility] is her home. She has been easily agitated with the staff who tried to help her with her ADLs and they could not because of her agitation, irritability and anger outbursts. I met with her family happens to be here and they say that she seems to be a bit calmer compared to few days ago. The patient continues to be confused, easily agitated and irritable. She is on Seroquel 12.5 mg twice a day and trazodone 50 mg at bedtime with no side effects, no sedation, no nausea and no extrapyramidal symptoms. We will continue to work with the patient in group therapy, milieu therapy, adjust the medication as needed. JOB# [id number]
--- NOTE | 2016-06-05 08:10 | General Progress Note ---
Subjective - Review of Systems Service Date: 06/05/16 Events since last encounter: patient confused Subjective: pt is confused Objective - Results Result Diagrams: 05/30/16 13:55 05/30/16 13:55 Recent Labs: Laboratory Last Values WBC 6.3 Th/cmm (4.8-10.8) 05/30/16 13:55 RBC 4.49 Mil/cmm (3.80-5.20) 05/30/16 13:55 Hgb 13.0 gm/dL (11.7-16.1) 05/30/16 13:55 Hct 39.4 % (35.0-45.0) 05/30/16 13:55 MCV 87.7 fl (81-100) 05/30/16 13:55 MCH 28.9 pg (27.0-31.0) 05/30/16 13:55 MCHC Differential 33.0 pg (28.0-36.0) 05/30/16 13:55 RDW 12.6 % (11.5-20.0) 05/30/16 13:55 Plt Count 256 Th/cmm (150-400) 05/30/16 13:55 MPV 8.5 fl 05/30/16 13:55 Neutrophils % 60.7 % (40.0-80.0) 05/30/16 13:55 Lymphocytes % 31.0 % (20.0-50.0) 05/30/16 13:55 Monocytes % 6.5 % (2.0-10.0) 05/30/16 13:55 Eosinophils % 0.8 % (0.0-5.0) 05/30/16 13:55 Basophils % 1.0 % (0.0-2.0) 05/30/16 13:55 Sodium 135 mEq/L (136-145) L 05/30/16 13:55 Potassium 3.6 mEq/L (3.5-5.1) 05/30/16 13:55 Chloride 106 mEq/L (98-107) 05/30/16 13:55 Carbon Dioxide 29.0 mEq/L (21.0-31.0) 05/30/16 13:55 Anion Gap 3.6 (7.0-16.0) L 05/30/16 13:55 BUN 19 mg/dL (7-25) 05/30/16 13:55 Creatinine 0.9 mg/dL (0.6-1.2) 05/30/16 13:55 Est GFR ( Amer) TNP 05/30/16 13:55 Est GFR (Non-Af Amer) TNP 05/30/16 13:55 BUN/Creatinine Ratio 21.1 05/30/16 13:55 Glucose 107 mg/dL (70-105) H 05/30/16 13:55 POC Glucose 116 MG/DL (70 - 105) H 05/30/16 13:55 Whole Bld Lactic Acid 0.72 mmol/L (0.60-1.99) 05/30/16 13:55 Calcium 9.4 mg/dL (8.6-10.3) 05/30/16 13:55 Total Bilirubin 0.6 mg/dL (0.3-1.0) 05/30/16 13:55 AST 17 U/L (13-39) 05/30/16 13:55 ALT 12 U/L (7-52) 05/30/16 13:55 Alkaline Phosphatase 79 U/L (34-104) 05/30/16 13:55 Total Protein 7.6 gm/dL (6.0-8.3) 05/30/16 13:55 Albumin 4.1 gm/dL (3.7-5.3) 05/30/16 13:55 Globulin 3.5 gm/dL 05/30/16 13:55 Albumin/Globulin Ratio 1.2 (1.0-1.8) 05/30/16 13:55 Urine Source CATH 05/30/16 14:08 Urine Color YELLOW 05/30/16 14:08 Urine Clarity CLEAR (CLEAR) 05/30/16 14:08 Urine pH 5.5 05/30/16 14:08 Ur Specific [place] 1.025 (1.005-1.030) 05/30/16 14:08 Urine Protein NEGATIVE mg/dL (NEGATIVE) 05/30/16 14:08 Urine Glucose (UA) NEGATIVE mg/dL (NEGATIVE) 05/30/16 14:08 Urine Ketones NEGATIVE mg/dL (NEGATIVE) 05/30/16 14:08 Urine Blood NEGATIVE (NEGATIVE) 05/30/16 14:08 Urine Nitrate NEGATIVE (NEGATIVE) 05/30/16 14:08 Urine Bilirubin NEGATIVE (NEGATIVE) 05/30/16 14:08 Urine Urobilinogen 0.2 E.U./dL (0.2 - 1.0) 05/30/16 14:08 Ur Leukocyte Esterase NEGATIVE (NEGATIVE) 05/30/16 14:08 Urine RBC NONE SEEN /hpf (0-5) 05/30/16 14:08 Urine WBC 0-2 /hpf (0-5) 05/30/16 14:08 Ur Epithelial Cells OCCASIONAL /lpf (FEW) 05/30/16 14:08 Urine Bacteria FEW /hpf (NONE SEEN) 05/30/16 14:08 Urine Mucus FEW /lpf (FEW) 05/30/16 14:08 Urine Opiates Screen NEGATIVE (NEGATIVE) 05/30/16 14:08 Ur Barbiturates Screen NEGATIVE (NEGATIVE) 05/30/16 14:08 Ur Phencyclidine Scrn NEGATIVE (NEGATIVE) 05/30/16 14:08 Amphetamines Screen NEGATIVE (NEGATIVE) 05/30/16 14:08 U Methamphetamines Scrn NEGATIVE (NEGATIVE) 05/30/16 14:08 U Benzodiazepines Scrn NEGATIVE (NEGATIVE) 05/30/16 14:08 U Cocaine Metab Screen NEGATIVE (NEGATIVE) 05/30/16 14:08 U Cannabinoids Screen NEGATIVE (NEGATIVE) 05/30/16 14:08 - Physical Exam Vitals and I&O: Vital Signs Temp 96.8 F 06/04/16 14:00 Pulse 74 06/04/16 14:00 Resp 18 06/04/16 14:00 BP 157/77 06/04/16 14:00 Pulse Ox 97 06/04/16 14:00 Intake & Output 06/04/16 06/05/16 06/05/16 18:59 06:59 18:59 Intake Total 1800 120 Balance 1800 120 Intake: Oral 1800 120 Other: # Voids 3 3 # Bowel Movements 0 Active Medications: Current Medications Memantine (Namenda) 10 mg PO BID [facility] Stop: 07/30/16 11:14 Last Admin: 06/04/16 16:22 Dose: 10 mg Ondansetron HCl (Zofran Odt) 4 mg PO Q6H PRN PRN Reason: Nausea / Vomiting Stop: 07/29/16 21:07 Quetiapine Fumarate (Seroquel) 12.5 mg PO BID [facility] PRN Reason: Protocol Stop: 08/01/16 08:59 Last Admin: 06/04/16 16:22 Dose: 12.5 mg Trazodone HCl (Desyrel) 50 mg PO HS NANCY PRN Reason: Protocol Stop: 07/30/16 20:59 Last Admin: 06/04/16 21:03 Dose: 50 mg General: No acute distress HEENT: Atraumatic Neck: Supple Cardiovascular: Regular rate Lungs: Clear to auscultation Assessment/Plan - Problem List Patient Problems: All Active Problems INCREASED AGITATION AND AGGRESSION (Acute) Psychosis (Acute) F29 psychosis (Acute) - Plan Plan: as per psych as problems arise Nutritional Asmnt/Malnutr-PDOC - Dietary Evaluation Malnutrition Findings (Please click <Entered> for more info): Nutritional Asmnt/Malnutrition Start: 06/02/16 17: 42 Text: Status: Complete Freq: Document 06/02/16 17:42 GSUN (Rec: 06/02/16 17:54 GSUN [email or web address]) Nutritional Asmnt/Malnutrition Patient General Information Nutritional Screening Moderate Risk Screening Diagnosis Acute psychosis, insomnia, acute danger to self, gravely disabled Pertinent Medical Hx/Surgical Hx Dementia, HTN, insomnia Subjective Information 75 year old female from SNF. Pt was resting with eyes closed, made eye contact with RD upon RD's call. Pt mumbled a few words and closed eyes again, unable to interview. Avg PO intake 88% past 6 meals recorded, meeting nutritional needs. No concerns per nursing staff. Mild wasting of temporals noted. Current Diet Order/ Nutrition Support Low cholesterol, no pork Pertinent Medications Zofran, Seroquel Pertinent Labs Reviewed. Nutritional Hx/Data Height 1.57 m Height (Calculated Centimeters) 157.5 Current Weight (lbs) 50.167 kg Weight (Calculated Kilograms) 50.2 Weight (Calculated Grams) 16735.3 [place] Body Weight 110lb Weight Status Approriate GI Symptoms Food Allergies No Skin Integrity/Comment: Donovan 19. Skin intact. Current %PO Good (75-100%) Estimated Nutritional Goals BEE in Kcals: Using Current wt Calories/Kcals/Kg CBW 110.6lb/50kg Kcals Calculated 1250-1500kcal (25-30kcal/kg) Protein: Using Current wt Protein Calculated 50g (1g/kg) Fluid: ml 1250-1500ml (1ml/kcal) Nutritional Problem 1. Problem Problem No nutritional problems at this time. Intervention/Recommendation Comments 1. Continue with current diet. Avg PO intake is adequate. 2. Monitor glucose. Slight hyperglycemia noted. Adjust diet if needed. Expected Outcomes/Goals Expected Outcomes/Goals 1. PO intake continue to meet at least 75% of estimated nutritional needs.
--- NOTE | 2016-06-05 21:47 | Progress Notes ---
Case was discussed with staff of the patient. The patient continues to be demented, confused, continues to have poor insight, unable to carry on a conversation or make safe plan for self-care. Continues to have poor insight. She tolerated Seroquel with no side effects. No sedation. No nausea and no extrapyramidal symptoms. We will continue to work with the patient in group therapy, milieu therapy, and adjust medications as needed. [facility]# [id number]
--- NOTE | 2016-06-06 22:22 | Progress Notes ---
Covering for Dr. Chen. Case was discussed with staff, met with the patient. The patient continues to be confused, not making sense; however, the staff reports she is not sleeping well and she continues to need redirection. She continues to be unpredictable, impulsive, confused, and demented. I will be increasing her trazodone dose to 75 mg at bedtime to help improve her sleep and so far no side effects, no sedation, no nausea, and no extrapyramidal symptoms. We will continue to work with the patient in group therapy, milieu therapy, and adjust medications as needed. JOB# [id number]
--- NOTE | 2016-06-07 03:14 | Progress Notes ---
SUBJECTIVE: The patient was seen in the dining room. The patient was having breakfast, but the patient also actively hallucinating and still demented and confused. No signs and symptoms of distress. OBJECTIVE: HEENT: Head is atraumatic and normocephalic. Eyes: Bilateral conjunctivae are clear for injections. NECK: Supple. No JVD. CARDIOVASCULAR: S1 and S2 heard without murmur. PULMONARY: Clear to auscultation. GASTROINTESTINAL: Soft and nontender without guarding. MUSCULOSKELETAL: No edema and no clubbing noted. ASSESSMENT: 1. Acute psychosis. 2. Dementia. 3. Insomnia. 4. Hypertension. PLAN: We will keep the patient inpatient to psych unit. We will follow up with the psychiatrist to monitor the patient's behavior. JOB# [id number]
--- NOTE | 2016-06-07 08:54 | General Progress Note ---
Subjective - Review of Systems Events since last encounter: patient still confused Subjective: pt is confused Objective - Results Result Diagrams: 05/30/16 13:55 05/30/16 13:55 Recent Labs: Laboratory Last Values WBC 6.3 Th/cmm (4.8-10.8) 05/30/16 13:55 RBC 4.49 Mil/cmm (3.80-5.20) 05/30/16 13:55 Hgb 13.0 gm/dL (11.7-16.1) 05/30/16 13:55 Hct 39.4 % (35.0-45.0) 05/30/16 13:55 MCV 87.7 fl (81-100) 05/30/16 13:55 MCH 28.9 pg (27.0-31.0) 05/30/16 13:55 MCHC Differential 33.0 pg (28.0-36.0) 05/30/16 13:55 RDW 12.6 % (11.5-20.0) 05/30/16 13:55 Plt Count 256 Th/cmm (150-400) 05/30/16 13:55 MPV 8.5 fl 05/30/16 13:55 Neutrophils % 60.7 % (40.0-80.0) 05/30/16 13:55 Lymphocytes % 31.0 % (20.0-50.0) 05/30/16 13:55 Monocytes % 6.5 % (2.0-10.0) 05/30/16 13:55 Eosinophils % 0.8 % (0.0-5.0) 05/30/16 13:55 Basophils % 1.0 % (0.0-2.0) 05/30/16 13:55 Sodium 135 mEq/L (136-145) L 05/30/16 13:55 Potassium 3.6 mEq/L (3.5-5.1) 05/30/16 13:55 Chloride 106 mEq/L (98-107) 05/30/16 13:55 Carbon Dioxide 29.0 mEq/L (21.0-31.0) 05/30/16 13:55 Anion Gap 3.6 (7.0-16.0) L 05/30/16 13:55 BUN 19 mg/dL (7-25) 05/30/16 13:55 Creatinine 0.9 mg/dL (0.6-1.2) 05/30/16 13:55 Est GFR ( Amer) TNP 05/30/16 13:55 Est GFR (Non-Af Amer) TNP 05/30/16 13:55 BUN/Creatinine Ratio 21.1 05/30/16 13:55 Glucose 107 mg/dL (70-105) H 05/30/16 13:55 POC Glucose 116 MG/DL (70 - 105) H 05/30/16 13:55 Whole Bld Lactic Acid 0.72 mmol/L (0.60-1.99) 05/30/16 13:55 Calcium 9.4 mg/dL (8.6-10.3) 05/30/16 13:55 Total Bilirubin 0.6 mg/dL (0.3-1.0) 05/30/16 13:55 AST 17 U/L (13-39) 05/30/16 13:55 ALT 12 U/L (7-52) 05/30/16 13:55 Alkaline Phosphatase 79 U/L (34-104) 05/30/16 13:55 Total Protein 7.6 gm/dL (6.0-8.3) 05/30/16 13:55 Albumin 4.1 gm/dL (3.7-5.3) 05/30/16 13:55 Globulin 3.5 gm/dL 05/30/16 13:55 Albumin/Globulin Ratio 1.2 (1.0-1.8) 05/30/16 13:55 Urine Source CATH 05/30/16 14:08 Urine Color YELLOW 05/30/16 14:08 Urine Clarity CLEAR (CLEAR) 05/30/16 14:08 Urine pH 5.5 05/30/16 14:08 Ur Specific [place] 1.025 (1.005-1.030) 05/30/16 14:08 Urine Protein NEGATIVE mg/dL (NEGATIVE) 05/30/16 14:08 Urine Glucose (UA) NEGATIVE mg/dL (NEGATIVE) 05/30/16 14:08 Urine Ketones NEGATIVE mg/dL (NEGATIVE) 05/30/16 14:08 Urine Blood NEGATIVE (NEGATIVE) 05/30/16 14:08 Urine Nitrate NEGATIVE (NEGATIVE) 05/30/16 14:08 Urine Bilirubin NEGATIVE (NEGATIVE) 05/30/16 14:08 Urine Urobilinogen 0.2 E.U./dL (0.2 - 1.0) 05/30/16 14:08 Ur Leukocyte Esterase NEGATIVE (NEGATIVE) 05/30/16 14:08 Urine RBC NONE SEEN /hpf (0-5) 05/30/16 14:08 Urine WBC 0-2 /hpf (0-5) 05/30/16 14:08 Ur Epithelial Cells OCCASIONAL /lpf (FEW) 05/30/16 14:08 Urine Bacteria FEW /hpf (NONE SEEN) 05/30/16 14:08 Urine Mucus FEW /lpf (FEW) 05/30/16 14:08 Urine Opiates Screen NEGATIVE (NEGATIVE) 05/30/16 14:08 Ur Barbiturates Screen NEGATIVE (NEGATIVE) 05/30/16 14:08 Ur Phencyclidine Scrn NEGATIVE (NEGATIVE) 05/30/16 14:08 Amphetamines Screen NEGATIVE (NEGATIVE) 05/30/16 14:08 U Methamphetamines Scrn NEGATIVE (NEGATIVE) 05/30/16 14:08 U Benzodiazepines Scrn NEGATIVE (NEGATIVE) 05/30/16 14:08 U Cocaine Metab Screen NEGATIVE (NEGATIVE) 05/30/16 14:08 U Cannabinoids Screen NEGATIVE (NEGATIVE) 05/30/16 14:08 - Physical Exam Vitals and I&O: Vital Signs Temp 98.2 F 06/07/16 06:24 Pulse 71 06/07/16 06:24 Resp 20 06/07/16 06:24 BP 117/71 06/07/16 06:24 Pulse Ox 98 06/07/16 06:24 Intake & Output 06/06/16 06/07/16 06/07/16 18:59 06:59 18:59 Intake Total 700 120 Balance 700 120 Intake: Oral 700 120 Other: # Voids 3 1 # Bowel Movements 1 0 Active Medications: Current Medications Memantine (Namenda) 10 mg PO BID [facility]Y Stop: 07/30/16 11:14 Last Admin: 06/06/16 17:36 Dose: 10 mg Ondansetron HCl (Zofran Odt) 4 mg PO Q6H PRN PRN Reason: Nausea / Vomiting Stop: 07/29/16 21:07 Quetiapine Fumarate (Seroquel) 12.5 mg PO BID [facility]ANC[facility] PRN Reason: Protocol Stop: 08/01/16 08:59 Last Admin: 06/06/16 17:35 Dose: 12.5 mg Trazodone HCl (Desyrel) 75 mg PO HS NANCY PRN Reason: Protocol Stop: 08/05/16 09:07 Last Admin: 06/06/16 20:59 Dose: Not Given General: No acute distress HEENT: Atraumatic Neck: Supple Extremities: Clubbing Assessment/Plan - Problem List Patient Problems: All Active Problems INCREASED AGITATION AND AGGRESSION (Acute) Psychosis (Acute) F29 psychosis (Acute) - Plan Plan: as per psych as problems arise Nutritional Asmnt/Malnutr-PDOC - Dietary Evaluation Malnutrition Findings (Please click <Entered> for more info): Nutritional Asmnt/Malnutrition Start: 06/02/16 17: 42 Text: Status: Complete Freq: Document 06/02/16 17:42 GSUN (Rec: 06/02/16 17:54 GSUN [email or web address]) Nutritional Asmnt/Malnutrition Patient General Information Nutritional Screening Moderate Risk Screening Diagnosis Acute psychosis, insomnia, acute danger to self, gravely disabled Pertinent Medical Hx/Surgical Hx Dementia, HTN, insomnia Subjective Information 75 year old female from SNF. Pt was resting with eyes closed, made eye contact with RD upon RD's call. Pt mumbled a few words and closed eyes again, unable to interview. Avg PO intake 88% past 6 meals recorded, meeting nutritional needs. No concerns per nursing staff. Mild wasting of temporals noted. Current Diet Order/ Nutrition Support Low cholesterol, no pork Pertinent Medications Zofran, Seroquel Pertinent Labs Reviewed. Nutritional Hx/Data Height 1.57 m Height (Calculated Centimeters) 157.5 Current Weight (lbs) 50.167 kg Weight (Calculated Kilograms) 50.2 Weight (Calculated Grams) 33071.3 [place] Body Weight 110lb Weight Status Approriate GI Symptoms Food Allergies No Skin Integrity/Comment: [place] 19. Skin intact. Current %PO Good (75-100%) Estimated Nutritional Goals BEE in Kcals: Using Current wt Calories/Kcals/Kg CBW 110.6lb/50kg Kcals Calculated 1250-1500kcal (25-30kcal/kg) Protein: Using Current wt Protein Calculated 50g (1g/kg) Fluid: ml 1250-1500ml (1ml/kcal) Nutritional Problem 1. Problem Problem No nutritional problems at this time. Intervention/Recommendation Comments 1. Continue with current diet. Avg PO intake is adequate. 2. Monitor glucose. Slight hyperglycemia noted. Adjust diet if needed. Expected Outcomes/Goals Expected Outcomes/Goals 1. PO intake continue to meet at least 75% of estimated nutritional needs.
[2016-06-08] MEDS: OLANZapine 10 mg Oral Disintegrating Tab PO SCH ×2 (10:00→16:51)
--- NOTE | 2016-06-09 01:23 | Progress Notes ---
SUBJECTIVE: Chart reviewed and the patient interviewed. Also, discussed the patient's condition with the staff and reviewed records and labs. The patient is still in irritable and angry, and she is still wandering around the unit and easily agitated. The patient also is still restless and she is still having severe mood swings. The patient also still gets agitated and irritable when staff tries to help her with her ADLs. She also refused to take medications. from the staff, and the patient still has disorganized thoughts and is still extremely paranoid and delusional. She also did not give any explanation of why she is refusing medications. ASSESSMENT: The patient is still psychotic and can be dangerous to others with her irritability and agitation. TREATMENT PLAN: We will continue monitoring her behavior and her condition closely. Also, we will discontinue the Seroquel and we will start the patient on Zyprexa Zydis. Hopefully, the patient will agree to take it ____ for better compliance. At the same time, we will continue monitoring her behavior and her condition closely because of her agitation and we will continue to follow up. JOB# [id number]
--- NOTE | 2016-06-09 05:38 | Progress Notes ---
SUBJECTIVE: The patient was seen in the dining room, having dinner. The patient appears to be calm at this time, but per nurses, the patient still has some episodes of outbursts of behavior. OBJECTIVE: HEENT: Head: Atraumatic and normocephalic. Eyes: Bilateral conjunctivae are clear for injections. NECK: Supple. No JVD. CARDIOVASCULAR: S1 and S2 heard without murmur. PULMONARY: Clear to auscultation. GASTROINTESTINAL: Soft and nontender without guarding. MUSCULOSKELETAL: No edema and no clubbing. ASSESSMENT: 1. Schizophrenia. 2. Dementia. 3. Insomnia. 4. Hypertension. PLAN: We will ____ to monitor the patient in the Geropsych Unit and we will follow up with a psychiatrist to monitor the patient's behavior. JOB# [id number]
[2016-06-09] MEDS: OLANZapine 10 mg Oral Disintegrating Tab PO SCH ×2 (09:46→18:57)
--- NOTE | 2016-06-10 05:45 | Progress Notes ---
SUBJECTIVE: Chart reviewed and the patient interviewed. Also discussed the patient's condition with the staff and reviewed records and labs. The patient continued to be confused and she is still delusional and paranoid. The patient also is still pacing up and down the unit and still actively hallucinating and talking to herself. She also is still resisting care and she still gets aggressive with the staff when they tried to redirect her or when they tried to help her with her ADLs. Otherwise, the patient is slightly easier to redirect her today. ASSESSMENT: The patient is still psychotic. TREATMENT PLAN: Continue to monitor her behavior and her condition closely. Also, continue working on her psychotropic medications and her compliance with treatment. JOB# [id number]
[2016-06-10] MEDS: OLANZapine 10 mg Oral Disintegrating Tab PO SCH ×2 (09:01→16:28)
--- NOTE | 2016-06-11 00:59 | Progress Notes ---
SUBJECTIVE: Chart reviewed and the patient interviewed. Also, discussed the patient's condition with the staff and reviewed records and labs. The patient seems to be slightly calmer than before, but she still has episodes of severe agitation and irritability and also is still talking to herself. The patient also is still resisting care and gets aggressive when staff tries to help her with her ADLs. The patient also is still pacing up and down the unit and is still resisting care and ____ agitated. On the other hand, the patient started to be more compliant with taking her medications and ____ changed to Zyprexa and it has been helping to some extent. The patient seems to be slightly sedated at times, but she just started to take Zyprexa. ASSESSMENT: The patient is still psychotic and is still considered to be gravely disabled. TREATMENT PLAN: We will continue Zyprexa on a dose of 5 mg twice a day. Also, continue to work on behavioral modification and her poor impulse control and agitation and continue to follow up. JOB# [id number]
[2016-06-11] MEDS: OLANZapine 10 mg Oral Disintegrating Tab PO SCH ×2 (08:10→17:00)
--- NOTE | 2016-06-12 00:01 | Progress Notes ---
SUBJECTIVE: The patient was seen in the dining room, waiting for breakfast. According to the staff, the patient has still episodes of outburst behavior. On the face to face evaluation the patient is still actively hallucinating and unable to care out conversation. OBJECTIVE: HEENT: Head: Atraumatic and normocephalic. Eyes: Bilateral pupils are equally round and reactive to light and accommodation. NECK: Supple. No JVD. CARDIOVASCULAR: S1 and S2 heard without murmur. PULMONARY: Clear to auscultation. GASTROINTESTINAL: Soft and nontender without guarding. MUSCULOSKELETAL: No edema and no clubbing. ASSESSMENT: 1. Schizophrenia. 2. Dementia. 3. Gravely disabled. 4. Insomnia. 5. Hypertension. PLAN: We will keep and monitor the patient in Geropsych unit and we will follow up with the psychiatrist. JOB# [id number]
--- NOTE | 2016-06-12 04:27 | Progress Notes ---
Covering for Dr. Chen. SUBJECTIVE: The patient was seen and evaluated. The patient's chart reviewed. Overnight staff reported that the patient continues to respond, talking herself, disorganized, and paranoid with poor sleep overnight. On [id number] evaluation, the patient observed to be very disorganized, needing a lot of redirection for ADLs. She has very difficultly engaging in a linear conversation. MENTAL STATUS EXAMINATION: Disorganized thought process, tangential, flight of ideas, and poor insight, judgment, and impulse control. ASSESSMENT AND PLAN: The patient is a 75-year-old female who continues to have psychotic symptoms that are impairing her insight and judgment. We will continue monitoring, evaluating, and we will continue with primary psychiatrist's treatment plan and goals. We will continue with Namenda as she is able to tolerate medication without any complications. Due to the patient's still active residual psychotic symptoms that impaired her ability to engage in ADL care, she is unable to formulate a safe plan outside in a structured environment. [facility]# [id number]
[2016-06-12] MEDS: OLANZapine 10 mg Oral Disintegrating Tab PO SCH (08:45)
--- NOTE | 2016-06-13 02:15 | Progress Notes ---
SUBJECTIVE: The patient seen, chart reviewed, discussed with staff. The patient is currently in the hospital; psychosis, confusion, disorganized behaviors, disorganized thought processes, tangential, nonsensical, rambling to herself. The patient is still getting into fights, out of control behaviors, ____, required emergency medications yesterday within the past 24 hours; intramuscular Ativan. The patient did calm down after that; nonsensical on exam, refusing care at times, poor ADLs, gravely disabled. ASSESSMENT AND PLAN: The patient remains symptomatic. Still aggressive at times, highly confused, poor activities of daily living, getting into fights. We will continue to monitor. We will adjust medications. We will hold morning dose of Zyprexa. Concern is that the patient is somewhat oversedated. Recommend also lowering any emergency dosing of Ativan to 0.5. The patient is not safe for discharge. Still symptomatic. [facility]# [id number]
[2016-06-13] MEDS: OLANZapine 10 mg Oral Disintegrating Tab PO SCH ×2 (09:00→17:09)
--- NOTE | 2016-06-14 06:18 | Discharge Summary ---
PRIMARY DIAGNOSIS: ____Unspecified psychosis. SECONDARY DIAGNOSES: Rule out schizoaffective disorder, ____bipolar type, with psychosis. Rule out dementia with psychosis. REASON FOR HOSPITALIZATION: The patient was admitted to the hospital because of increased depression and agitation and the patient was not able to follow directions in half-way. HOSPITAL COURSE: The patient continued to be depressed and confused and disorganized thoughts. The patient also was rambling and wants to stay in her bed all the time. She also was not compliant with taking medications. Her Seroquel was changed to Zyprexa Zydis, which the patient started to take and the patient's affect became brighter. The patient was less agitated and less irritable and the patient was discharged from the hospital and returning back to [facility]. The patient had no major medical problems while in the hospital and no abnormal labs. AFTER DISCHARGE PLANS: The patient is to return to [facility] with plans for follow her up there. Also, would continue current psychotropic medications. EXPECTED OUTCOME AFTER DISCHARGE: Fair if the patient continues with her outpatient treatment and continue to take her psychotropic medications. JOB# [id number]
== END 2016-06-13 18:20 | disposition home or self-care (01) | DRG 885 ==
LOC: ER 13:35 → GERO 16:45
PROVIDERS: ADMIT Psychiatry & Neurology Psychiatry; ATTEND Psychiatry & Neurology Psychiatry
DX: F29 Unspecified psychosis not due to a substance or known physiological condition (principal); F03.90 Unspecified dementia, unspecified severity, without behavioral disturbance, psychotic disturbance, mood disturbance, and anxiety; F23 Brief psychotic disorder; I10 Essential (primary) hypertension; G47.00 Insomnia, unspecified; F25.0 Schizoaffective disorder, bipolar type
CPT/HCPCS: 36415-UA; 80053-TC; 81001-TC; 82948-90; 83605; 85025-TC; 90899; 93005; J2060; Z7610

== ENCOUNTER 2017-05-24 15:15 | Inpatient (IN) | payer MEDICARE, MEDICAID ==
--- NOTE | 2017-05-24 15:47 | ED Physician Chart ---
ED Chief Complaint/HPI - Patient Information Date Seen:: 05/24/17 Time Seen:: 15:30 Chief Complaint:: ALOC History of Present Illness:: onset x 2 days of ALOC, AMS, and back pain; no report of trauma, H/As, S/T, neck pain, C/P, SOB, Abd. Pain, A/N/V/D/C, fever, chills, or urinary s/s Allergies:: Allergies Allergy/AdvReac Type Severity Reaction Status Date / Time Penicillins Allergy Verified 05/30/16 13:57 Pork/Porcine Containing Allergy Verified 05/30/16 14:11 Products ED Review of Systems - Review of Systems General/Constitutional: No fever, No chills, No weight loss, No weakness, No diaphoresis, No edema, No loss of appetite Skin: No skin lesions, No rash, No bruising Head: No headache, No light-headedness Eyes: No loss of vision, No pain, No diplopia ENT: No earache, No nasal drainage, No sore throat, No tinnitus Neck: No neck pain, No swelling, No thyromegaly, No stiffness, No mass noted Cardio Vascular: No chest pain, No palpitations, No PND, No orthopnea, No edema Pulmonary: No SOB, No cough, No sputum, No wheezing GI: No nausea, No vomiting, No diarrhea, No pain, No melena, No hematochezia, No constipation, No hematemesis G/U: No dysuria, No frequency, No hematuria, No nacturia [employer]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 discharge, No abnormal vaginal bleed, No contraction Musculoskeletal: No bone or joint pain, Back pain, No muscle pain Endocrine: No polyuria, No polydipsia Psychiatric: Prior psych history, No depression, No anxiety, No suicidal ideation, No homicidal ideation, Auditory hallucination, No visual hallucination Hematopoietic: No bruising, No lymphadenopathy Allergic/Immuno: No urticaria, No angioedema Neurological: No syncope, No focal symptoms, No weakness, No paresthesia, No headache, No seizure, No dizziness, Confusion, No vertigo ED Past Medical History - Past Medical History Obtainable: Yes Past Medical History: HTN, Dyslipidemia, PUD/GERD, Dementia Family History: Diabetes Melitus, HTN Social History: Non Smoker, No Alcohol, No Drug Use, Single, Care Facility Surgical History: None Psychiatricy History: Schizophrenia, Bipolar, Dementia Medication: Reviewed Family Medical History - Family Member Mother History Unknown: Yes ED Physical Exam - Physical Examination General/Constitutional: Awake, Well-developed, well-nourished, Alert, No distress, GCS 15, Non-toxic appearing, Ambulatory Head: Atraumatic Eyes: Lids, conjuctiva normal, PERRL, EOMI Skin: Nl inspection, No rash, No skin lesions, No ecchymosis, Well hydrated, No lymphadenopathy ENMT: External ears, nose nl, TM canals nl, Nasal exam nl, Lips, teeth, gums nl , Oropharynx nl, Tonsils nl Neck: Nontender, Full ROM w/o pain, No JVD, No nuchal rigidity, No bruit, No mass, No stridor Respiratory: Nl effort/Exclusion, Clear to Auscultation, No Wheeze/Rhonchi/Rales Cardio Vascular: No murmur, gallop, rubs, NL S1 S2, Carotid/Femoral/Distal pulses equal bilaterally Other Cardio Vascular comments:: Irregular Irregular Rhythm GI: No tenderness/rebounding/guarding, No organomegaly, No hernia, Normal BS's, Nondistended, No mass/bruits, No McBurney tenderness : No CVA tenderness Extremities: No tenderness or effusion, Full ROM, normal strength in all extremities, No edema, Normal digits & nails Neuro/Psych: Alert/oriented, DTR's symmetric, Normal sensory exam, Normal motor strength, Judgement/insight normal, Mood normal, Normal gait, No focal deficits Other Neuro/Psych comments:: Disoriented and Confused Misc: Normal back, No paraspinal tenderness ED Labs/Radiology/EKG Results - Lab Results Comments:: BNP: 174 - Radiology Results Comments:: NAD - EKG Interpretations EKG Time:: 16:04 Rate & Rhythm: 116; ST; Atrial Fibrillation; PACs Comments:: PACs; non-specific st-t changes ED Septic Shock - . Is Septic Shock (SBP<90, OR Lactate>4 mmol\L) present?: No ED Reassessment (Disposition) - Reassessment Reassessment Condition:: Improved - Diagnosis Diagnosis:: Atrial Fibrillation; Back Pain; Dementia; Hypertension; ALOC; AMS - Aftercare/Follow up Instructions Aftercare/Follow-Up Instructions:: Counseled pt regarding lab results/diagnosis & need follow up, Counseled pt & family regarding lab results/diagnosis & need follow up - Patient Disposition Discharge/Transfer:: Acute Care w/in this hosp Accepting Physician:: Dr. Panda Time Called:: 1700 Time Responded:: 17:00 Admitted to:: Telemetry Spoke to:: Dr. Panda Admitting Medical Physician:: Dr. Panda Condition at Disposition:: Stable, Improved
[2017-05-24] MEDS ORDERED: Haloperidol Lactate 5 mg/mL 1mL Vial IM STA (15:48)
[2017-05-24] MEDS ORDERED: Haloperidol Lactate 5 mg/mL 1mL Vial ONE (15:52)
[2017-05-24 16:10] LABS: % BASOPHILS 0.5 % (0.0-2.0); % EOSINOPHILS 1.5 % (0.0-5.0); % LYMPHOCYTES 26.3 % (20.0-50.0); % MONOCYTES 9.7 % (2.0-10.0); EOSINOPHILE ABSOLUTE 0.1 Th/cmm (0.1-0.4); HEMOGLOBIN 12.2 gm/dL (12-16); LYMPHOCYTE ABSOLUTE 2.3 Th/cmm (1.5-3.0); MEAN CELL VOLUME 89.9 fl (81-100); MEAN CORPUSCULAR HEMOGLOBIN 30.6 pg (27.0-31.0); MEAN PLATELET VOLUME 7.8 fl; MONOCYTE ABSOLUTE 0.8 Th/cmm (0.3-1.0); NEUTROPHILE ABSOLUTE 5.4 Th/cmm (1.8-8.0); PLATELET COUNT 229 Th/cmm (150-400); RED CELL DISTRIBUTION WIDTH 12.8 % (11.5-20.0); WHITE BLOOD COUNT 8.6 Th/cmm (4.8-10.8)
[2017-05-24 16:30] LABS: INR 0.95 (0.5-1.4); PROTHROMBIN TIME (TEST) 9.9 SECONDS (9.5-11.5)
[2017-05-24 16:37] LABS: ALB/GLOB RATIO 1.2 (1.0-1.8); ALBUMIN 4.2 gm/dL (3.7-5.3); ALKALINE PHOSPHATASE 70 U/L (34-104); ANION GAP 8.8 (7.0-16.0); BILIRUBIN,TOTAL 0.4 mg/dL (0.3-1.0); BUN - UREA NITROGEN 25 mg/dL (7-25); CALCIUM SERUM 9.8 mg/dL (8.6-10.3); CARBON DIOXIDE 30.7 mEq/L (21.0-31.0); CHLORIDE 104 mEq/L (98-107); CHOLESTEROL 202 mg/dL (<200); CREATININE - SERUM 0.9 mg/dL (0.6-1.2); CREATININE KINASE 91 U/L (30-223); GLUCOSE 118 mg/dL (70-105); HDL -HIGH DENSITY LIPOPROTEIN 91 mg/dL (23-92); POTASSIUM SERUM 4.5 mEq/L (3.5-5.1); SGOT 29 U/L (13-39); SGPT/ALT 25 U/L (7-52); SODIUM SERUM 139 mEq/L (136-145); TOTAL PROTEIN,SERUM 7.6 gm/dL (6.0-8.3); TRIGLYCERIDES 91 mg/dL (<150)
[2017-05-24] MEDS ORDERED: IOHEXOL 350mgI/mL 150mL IV ONE (17:34)
[2017-05-24] MEDS ORDERED: Non-Formulary Item 1 EA (Acetaminophen [Acetaminophen Er] 650 MG) PO PRN (19:52)
[2017-05-24] MEDS ORDERED: Non-Formulary Item 1 EA (Acetaminophen [Pain Reliever] 650 MG) PO PRN (19:52)
[2017-05-24] MEDS ORDERED: Acetaminophen 500 MG TAB PO PRN (19:52)
[2017-05-24] MEDS: Atorvastatin Calcium 10 MG TAB PO SCH (21:42)
[2017-05-24 23:49] VITALS: BP 109/68
[2017-05-25 07:58] LABS: % BASOPHILS 0.1 % (0.0-2.0); % EOSINOPHILS 1.4 % (0.0-5.0); % LYMPHOCYTES 32.6 % (20.0-50.0); % MONOCYTES 9.7 % (2.0-10.0); % NEUTROPHILS 56.2 % (40.0-80.0); EOSINOPHILE ABSOLUTE 0.1 Th/cmm (0.1-0.4); HEMATOCRIT 36.4 % (41.0-60); HEMOGLOBIN 12.1 gm/dL (12-16); LYMPHOCYTE ABSOLUTE 2.8 Th/cmm (1.5-3.0); MEAN CELL VOLUME 89.3 fl (81-100); MEAN CORPUSCULAR HEMOGLOBIN 29.7 pg (27.0-31.0); MEAN CORPUSCULAR HGB CONC 33.3 pg (28.0-36.0); MEAN PLATELET VOLUME 8.5 fl; MONOCYTE ABSOLUTE 0.8 Th/cmm (0.3-1.0); NEUTROPHILE ABSOLUTE 4.8 Th/cmm (1.8-8.0); PLATELET COUNT 207 Th/cmm (150-400); RED BLOOD COUNT 4.08 Mil/cmm (3.80-5.20); RED CELL DISTRIBUTION WIDTH 12.7 % (11.5-20.0); WHITE BLOOD COUNT 8.5 Th/cmm (4.8-10.8)
[2017-05-25 08:03] LABS: URINE MICROSCOPIC INDICATED? YES; URINE SOURCE CATH
[2017-05-25 08:24] LABS: URINE BILIRUBIN NEGATIVE (NEGATIVE); URINE BLOOD SMALL (NEGATIVE); URINE GLUCOSE (UA) NEGATIVE (NEGATIVE); URINE KETONE NEGATIVE (NEGATIVE); URINE LEUKOCYTE ESTERASE NEGATIVE (NEGATIVE); URINE NITRATE NEGATIVE (NEGATIVE); URINE PH 6.5 (4.6 - 8.0); URINE PROTEIN NEGATIVE (NEGATIVE); URINE UROBILINOGEN 0.2 E.U./dL (0.2 - 1.0)
[2017-05-25 08:29] LABS: URINE CLARITY CLEAR (CLEAR); URINE COLOR YELLOW
[2017-05-25 08:35] LABS: URINE RBC 0-2 /hpf (0-5); URINE WBC 0-2 /hpf (0-5)
[2017-05-25 08:36] LABS: URINE BACTERIA FEW /hpf (NONE SEEN); URINE EPITHELIAL CELLS RARE /lpf (FEW)
[2017-05-25 08:50] LABS: ALB/GLOB RATIO 1.2 (1.0-1.8); ALBUMIN 3.9 gm/dL (3.7-5.3); ALKALINE PHOSPHATASE 68 U/L (34-104); ANION GAP 11.3 (7.0-16.0); BILIRUBIN,TOTAL 0.5 mg/dL (0.3-1.0); BUN - UREA NITROGEN 17 mg/dL (7-25); CALCIUM SERUM 9.7 mg/dL (8.6-10.3); CARBON DIOXIDE 28.7 mEq/L (21.0-31.0); CHLORIDE 103 mEq/L (98-107); CHOLESTEROL 192 mg/dL (<200); CREATININE - SERUM 0.8 mg/dL (0.6-1.2); GLUCOSE 97 mg/dL (70-105); HDL -HIGH DENSITY LIPOPROTEIN 83 mg/dL (23-92); SGOT 21 U/L (13-39); SGPT/ALT 21 U/L (7-52); SODIUM SERUM 139 mEq/L (136-145); TOTAL PROTEIN,SERUM 7.3 gm/dL (6.0-8.3); TRIGLYCERIDES 99 mg/dL (<150)
--- NOTE | 2017-05-25 09:20 | Diagnostic Imaging Report ---
CT angiogram of the abdomen and pelvis with intravenous contrast (CTA) HISTORY: Pain Total DLP equals 221 CTDI equals 25.0 Following administration of intravenous contrast, axial sections were obtained from the xiphoid process down to the pubic symphysis. Limited sections through the lower chest demonstrate a 7 mm calcified nodule in the periphery of the left upper mid lung. Findings most likely related to old granulomatous disease. The liver exhibits a homogeneous parenchyma. No focal lesions. The spleen appears normal. No focal abnormality seen within the pancreas. There is an approximate 3.5 cm cyst extending off the upper pole of the left kidney. The right kidney appears normal. Surgical clips are noted in the neptali hepatis region consistent with prior cholecystectomy. The abdominal aorta exhibits a normal caliber and normal opacification. No aneurysm formation. No evidence of aortic dissection. Multifocal calcified atherosclerotic plaque is seen. The exam of the pelvis demonstrates preservation of normal fat planes. No abnormal soft tissue masses or abnormal fluid collections. There is a contracted urinary bladder. This precludes evaluation of the urinary bladder wall. Severe degenerative changes noted in the spine particularly the lumbar region. IMPRESSION: 1. No acute abnormalities 2. Findings consistent with prior cholecystectomy 3. Normal caliber of the abdominal aorta with no aneurysm or evidence of aortic dissection identified 4. Left renal cyst 5. Calcified nodule in the periphery of the upper mid left lung most likely related to old granulomatous disease
--- NOTE | 2017-05-25 14:07 | Internal Medicine Prog Note ---
Internal Medicine Subjective - Subjective Service Date: 05/25/17 ([id number] [facility]) Internal Medicine Objective - Results Result Diagrams: 05/25/17 05:55 05/25/17 05:55 Recent Labs: Laboratory Last Values WBC 8.5 Th/cmm (4.8-10.8) 05/25/17 05:55 RBC 4.08 Mil/cmm (3.80-5.20) 05/25/17 05:55 Hgb 12.1 gm/dL (12-16) 05/25/17 05:55 Hct 36.4 % (41.0-60) L 05/25/17 05:55 MCV 89.3 fl (81-100) 05/25/17 05:55 MCH 29.7 pg (27.0-31.0) 05/25/17 05:55 MCHC Differential 33.3 pg (28.0-36.0) 05/25/17 05:55 RDW 12.7 % (11.5-20.0) 05/25/17 05:55 Plt Count 207 Th/cmm (150-400) 05/25/17 05:55 MPV 8.5 fl 05/25/17 05:55 Neutrophils % 56.2 % (40.0-80.0) 05/25/17 05:55 Lymphocytes % 32.6 % (20.0-50.0) 05/25/17 05:55 Monocytes % 9.7 % (2.0-10.0) 05/25/17 05:55 Eosinophils % 1.4 % (0.0-5.0) 05/25/17 05:55 Basophils % 0.1 % (0.0-2.0) 05/25/17 05:55 PT 9.9 SECONDS (9.5-11.5) 05/24/17 16:02 INR 0.95 (0.5-1.4) 05/24/17 16:02 Sodium 139 mEq/L (136-145) 05/25/17 05:55 Potassium 4.0 mEq/L (3.5-5.1) 05/25/17 05:55 Chloride 103 mEq/L (98-107) 05/25/17 05:55 Carbon Dioxide 28.7 mEq/L (21.0-31.0) 05/25/17 05:55 Anion Gap 11.3 (7.0-16.0) 05/25/17 05:55 BUN 17 mg/dL (7-25) 05/25/17 05:55 Creatinine 0.8 mg/dL (0.6-1.2) 05/25/17 05:55 Est GFR ( Amer) TNP 05/25/17 05:55 Est GFR (Non-Af Amer) TNP 05/25/17 05:55 BUN/Creatinine Ratio 21.3 05/25/17 05:55 Glucose 97 mg/dL (70-105) 05/25/17 05:55 Calcium 9.7 mg/dL (8.6-10.3) 05/25/17 05:55 Total Bilirubin 0.5 mg/dL (0.3-1.0) 05/25/17 05:55 AST 21 U/L (13-39) 05/25/17 05:55 ALT 21 U/L (7-52) 05/25/17 05:55 Alkaline Phosphatase 68 U/L (34-104) 05/25/17 05:55 Creatine Kinase 91 U/L (30-223) 05/24/17 16:02 Troponin I 0.01 ng/mL (0.01-0.05) 05/24/17 16:02 B-Natriuretic Peptide 255.0 pg/mL (5.0-100.0) H 05/25/17 05:55 Total Protein 7.3 gm/dL (6.0-8.3) 05/25/17 05:55 Albumin 3.9 gm/dL (3.7-5.3) 05/25/17 05:55 Globulin 3.4 gm/dL 05/25/17 05:55 Albumin/Globulin Ratio 1.2 (1.0-1.8) 05/25/17 05:55 Triglycerides 99 mg/dL (<150) 05/25/17 05:55 Cholesterol 192 mg/dL (<200) 05/25/17 05:55 LDL Cholesterol Direct 85 mg/dL (75-193) 05/25/17 05:55 HDL Cholesterol 83 mg/dL (23-92) 05/25/17 05:55 TSH 2.24 uIU/ml (0.34-5.60) 05/25/17 05:55 Urine Source CATH 05/25/17 05:00 Urine Color YELLOW 05/25/17 05:00 Urine Clarity CLEAR (CLEAR) 05/25/17 05:00 Urine pH 6.5 (4.6 - 8.0) 05/25/17 05:00 Ur Specific [place] <= 1.005 (1.005-1.030) 05/25/17 05:00 Urine Protein NEGATIVE mg/dL (NEGATIVE) 05/25/17 05:00 Urine Glucose (UA) NEGATIVE mg/dL (NEGATIVE) 05/25/17 05:00 Urine Ketones NEGATIVE mg/dL (NEGATIVE) 05/25/17 05:00 Urine Blood SMALL (NEGATIVE) H 05/25/17 05:00 Urine Nitrate NEGATIVE (NEGATIVE) 05/25/17 05:00 Urine Bilirubin NEGATIVE (NEGATIVE) 05/25/17 05:00 Urine Urobilinogen 0.2 E.U./dL (0.2 - 1.0) 05/25/17 05:00 Ur Leukocyte Esterase NEGATIVE (NEGATIVE) 05/25/17 05:00 Urine RBC 0-2 /hpf (0-5) 05/25/17 05:00 Urine WBC 0-2 /hpf (0-5) 05/25/17 05:00 Ur Epithelial Cells RARE /lpf (FEW) 05/25/17 05:00 Urine Bacteria FEW /hpf (NONE SEEN) 05/25/17 05:00 - Physical Exam Vitals and I&O: Vital Signs Temp 96.8 F 05/25/17 11:55 Pulse 85 05/25/17 11:55 Resp 18 05/25/17 11:55 BP 125/73 05/25/17 11:55 Pulse Ox 97 05/25/17 11:55 Intake & Output 05/24/17 05/25/17 05/25/17 18:59 06:59 18:59 Intake Total 100 Balance 100 Weight (lbs) 94 lb 14.4 oz 89 lb 14.4 oz Intake: Oral 100 Other: # Voids 2 Active Medications: Current Medications Acetaminophen (Tylenol Extra Strength) 1,000 mg PO Q4H PRN PRN Reason: Pain (Moderate) Stop: 07/23/17 19:51 Acetaminophen (Tylenol) 650 mg PO Q4H PRN PRN Reason: MILD PAIN/TEMP>100 Stop: 07/24/17 01:22 Atorvastatin Calcium (Lipitor) 10 mg PO HS NANCY PRN Reason: Protocol Stop: 07/23/17 20:59 Last Admin: 05/24/17 21:42 Dose: Not Given Donepezil HCl (Aricept) 5 mg PO DAILY NANCY Stop: 07/24/17 08:59 Last Admin: 05/25/17 09:17 Dose: 5 mg Lorazepam (Ativan) 0.5 mg IVP Q6H PRN; Protocol PRN Reason: Agitation Stop: 07/24/17 13:44 Memantine (Namenda) 10 mg PO BID NANCY Stop: 07/24/17 08:59 Last Admin: 05/25/17 09:17 Dose: 10 mg Olanzapine (Zyprexa) mg PO HS NANCY PRN Reason: Protocol Stop: 07/23/17 20:59 Warfarin Sodium (Coumadin Per Pharmacy) 1 ea MC PRN PRN; Protocol PRN Reason: RX MONITORING Stop: 07/24/17 12:16
[2017-05-25 16:13] LABS: INR 0.95 (0.5-1.4); PROTHROMBIN TIME (TEST) 9.9 SECONDS (9.5-11.5)
--- NOTE | 2017-05-25 16:38 | History & Physical ---
ADMIT DATE: 05/25/2017 CHIEF COMPLAINT: ALOC. HISTORY OF PRESENT ILLNESS: This is a 76-year-old female who is a retirement resident who has a 2-day history of altered mental status. The patient did not have any fevers at the retirement. For further management, the patient is now admitted to the telemetry unit. PAST MEDICAL HISTORY: Hypertension, dyslipidemia, PUD, GERD, dementia. FAMILY HISTORY: Noncontributory. SOCIAL HISTORY: The patient is a retirement resident, requiring 24-hour nursing care. MEDICATIONS: Please see medication sheet. FAMILY HISTORY: Noncontributory. REVIEW OF SYSTEMS: Unable to obtain due to patient's mental status. PHYSICAL EXAMINATION: GENERAL: This is an elderly female, awake with confusion, no apparent distress. VITAL SIGNS: Temperature 96.8, heart rate 85, blood pressure 125/72, respiration 18, O2 97%. HEENT: Head; normocephalic, atraumatic. NECK: Supple. No mass. LUNGS: Clear bilaterally. ABDOMEN: Soft, nontender. LABORATORY DATA: WBC 8.5, H and H 12.1 and 36.4, platelet of 207. Sodium 139, potassium 4.0, chloride 103, BUN 17, creatinine 0.8. BNP 255. ASSESSMENT: Atrial fibrillation, altered mental status, lower back pain, hypertension, dementia, dyslipidemia, GERD. PLAN: The patient to be admitted to the telemetry unit. We will get a corporate financial analyst as well as psychiatrist on the case. We will get a 2D echocardiogram, CT of the lumbar spine, also CT thoracic spine as well. We will continue to monitor this patient. JOB# [id number]
--- NOTE | 2017-05-25 20:40 | Consultation ---
DATE OF CONSULTATION: 05/25/2017 PATIENT OF: Dr. Panda. HISTORY AND PHYSICAL: This is a 76-year-old female patient came to the Emergency Room with back pain. The patient was found to have atrial fibrillation. Following this, cardiac consult is requested. PAST MEDICAL HISTORY: Hypertension, hyperlipidemia, dementia, atrial fibrillation, schizophrenia, bipolar, dementia. FAMILY HISTORY: Unremarkable. SOCIAL HISTORY: No history of smoking, alcohol abuse. ALLERGIES: No known allergies. PHYSICAL EXAMINATION: VITAL SIGNS: Blood pressure 130/80, pulse 70, and respirations 20. HEAD: Normocephalic. No lumps or bumps. EYES: Pupils are equal and reactive to light. Fundi show AV nicking, sclerae white, conjunctivae pink. NECK: Carotid 2+. Normal upstroke. JVD flat. Thyroid not palpable. Lymph nodes not palpable. CHEST: Shows increased AP diameter. No kyphosis, scoliosis. LUNGS: Bilateral bronchovesicular breath sounds. Occasional wheeze. No rales. HEART: PMI fifth intercostal space with lateral to midclavicular line. S1, S2, S3, S4. S1 irregular. Systolic murmur grade 2/6, lower left sternal border without radiation. ABDOMEN: Soft. Liver and spleen not palpable. No organomegaly. Bowel sounds active. NEUROLOGIC: No focal neurological deficit. EXTREMITIES: Peripheral pulses 1+. No pedal edema. CLINICAL IMPRESSION: Low back pain, etiology unknown; atrial fibrillation, rate controlled; schizophrenia; bipolar; dementia; and osteoporosis. PLAN: Admit the patient. We will start the patient on anticoagulation, get a CT scan of the lower back, and monitor the patient. Also get echocardiogram. JOB# [id number]
[2017-05-25] MEDS: Atorvastatin Calcium 10 MG TAB PO SCH (23:50)
--- NOTE | 2017-05-25 23:59 | Consultation ---
DATE OF CONSULTATION: 05/25/2017 The patient of Farzad. HISTORY OF PRESENT ILLNESS: This 76-year-old female patient who was transferred from retirement because of altered mental status. The patient was found to have atrial fibrillation and hence, cardiac consult requested. PAST MEDICAL HISTORY: Hypertension, hyperlipidemia, peptic ulcer disease, GERD, and dementia. FAMILY HISTORY: Unremarkable. SOCIAL HISTORY: No history of smoking, alcohol abuse. ALLERGIES: No known allergies. PHYSICAL EXAMINATION: VITAL SIGNS: Blood pressure 120/82, pulse 80, respirations 20, and temperature 98. HEAD: Normocephalic. No lumps or bumps. EYES: Pupils equal, reactive to light. Fundi showing AV nicking, sclerae white, conjunctivae pink. NECK: Carotid 2+. Normal upstroke. JVD flat. Thyroid not palpable. Lymph nodes not palpable. CHEST: Shows increased AP diameter. No kyphosis, scoliosis. LUNGS: Bilateral bronchovesicular breath sounds. HEART: PMI fifth intercostal space with lateral to midclavicular line. S1 irregular, S2. No S3, soft S4. ABDOMEN: Soft. Liver and spleen not palpable. No organomegaly. Bowel sounds active. NEUROLOGIC: Unremarkable. EXTREMITIES: Peripheral pulses 2+. No pedal edema. CLINICAL IMPRESSION: 1. Atrial fibrillation. 2. Congestive heart failure, diastolic dysfunction, acute. 3. Dementia. 4. Hypertension. 5. Hyperlipidemia. 6. Gastroesophageal reflux disease. PLAN: Admit the patient. We will get 2D echo as well as start the patient on Lasix and monitor the patient. JOB# [id number]
[2017-05-26 05:53] LABS: % BASOPHILS 0.3 % (0.0-2.0); % EOSINOPHILS 1.8 % (0.0-5.0); % LYMPHOCYTES 28.8 % (20.0-50.0); % MONOCYTES 10.1 % (2.0-10.0); EOSINOPHILE ABSOLUTE 0.1 Th/cmm (0.1-0.4); HEMATOCRIT 35.4 % (41.0-60); HEMOGLOBIN 12.2 gm/dL (12-16); LYMPHOCYTE ABSOLUTE 2.1 Th/cmm (1.5-3.0); MEAN CELL VOLUME 87.2 fl (81-100); MEAN CORPUSCULAR HEMOGLOBIN 29.9 pg (27.0-31.0); MEAN CORPUSCULAR HGB CONC 34.3 pg (28.0-36.0); MEAN PLATELET VOLUME 8.6 fl; MONOCYTE ABSOLUTE 0.7 Th/cmm (0.3-1.0); NEUTROPHILE ABSOLUTE 4.3 Th/cmm (1.8-8.0); PLATELET COUNT 221 Th/cmm (150-400); RED BLOOD COUNT 4.06 Mil/cmm (3.80-5.20); RED CELL DISTRIBUTION WIDTH 12.4 % (11.5-20.0); WHITE BLOOD COUNT 7.2 Th/cmm (4.8-10.8)
[2017-05-26 06:00] LABS: INR 0.98 (0.5-1.4); PROTHROMBIN TIME (TEST) 10.2 SECONDS (9.5-11.5)
[2017-05-26 06:11] LABS: ANION GAP 10.2 (7.0-16.0); BUN - UREA NITROGEN 20 mg/dL (7-25); CALCIUM SERUM 9.7 mg/dL (8.6-10.3); CARBON DIOXIDE 29.8 mEq/L (21.0-31.0); CHLORIDE 103 mEq/L (98-107); CREATININE - SERUM 0.9 mg/dL (0.6-1.2); GLUCOSE 89 mg/dL (70-105); SODIUM SERUM 139 mEq/L (136-145)
--- NOTE | 2017-05-26 10:21 | Consultation ---
DATE OF CONSULTATION: 05/26/2017 PATIENT'S AGE: 76. SEX: Female. PHYSICIAN: Dr. Panda FABRICATION MANAGER: Faith Chen M.D., M.P.H. TYPE OF THE REPORT: Psychiatric consult. REASON FOR THE CONSULT: Altered level of conscious. HISTORY OF PRESENT ILLNESS: The patient is a 76-year-old female with history of dementia. The patient was admitted to the hospital because of altered level of conscious. The patient had periods of agitation and irritability and has been taking Zyprexa. The patient also has been having episodes of anxiety and restlessness. The patient currently is calm and she is confused. She was not able to answer any of my questions because a poor historian. PAST PSYCHIATRIC HISTORY: The patient has history of dementia. PAST MEDICAL HISTORY: The patient has hypertension as well as atrial fib, gastroesophageal reflux disease as well as peptic ulcer disease. SOCIAL HISTORY: The patient lives in a assisted. No known alcohol or street drug use. ALLERGIES: No known allergies. MENTAL STATUS EXAM: The patient appears slightly older than her stated age. Confused. Anxious. Unable to answer any of the questions currently. Thought processes are with poverty of speech. The patient seems to be responding. The patient is alert, but seems to be disoriented to time, place, person and situation. Impaired immediate, recent and remote memories that she was not able even to tell me about her date. ASSESSMENT: PRIMARY DIAGNOSIS: Unspecified psychosis. SECONDARY DIAGNOSES: Dementia, moderate to severe, with psychotic features. TREATMENT PLAN: We will continue Zyprexa in a dose of 2.5 mg at bedtime. Also give Ativan on a p.r.n. basis. Also, we will reevaluate her condition. Thanks Dr. Panda and we will follow up with you. JOB# [id number]
--- NOTE | 2017-05-26 11:46 | Diagnostic Imaging Report ---
CT scan lumbar spine HISTORY: Pain Total DLP equals 1743 CTDI equals 73.0 Axial sections are obtained to the lumbar spine. Additional sagittal and coronal reformatted images are provided. There is mild to moderate scoliosis of the thoracolumbar spine convexity to the right. This may be positional. There is generalized osteoporosis throughout the spine. Slight narrowing of the L5-S1 interspace. There is mild spondylolisthesis of L5 on S1 (approximately 10%). Air is seen within the interspace reflecting degenerative disc disease. Hypertrophic changes are noted about the facet joints. There is suggestion of a mild to moderate (2 to 3 mm). Central disc protrusion. Mild bilateral neural foraminal encroachment. The L4-5 level demonstrates small spur formation about vertebral endplates. There is a mild (2 mm) and should disc protrusion with slight encroachment on the anterior aspect of the thecal sac. Mild degenerative changes with small spur formation noted about the endplates of L3-4. Mild degenerative changes noted about the endplates of L1-2 and L2-3. Atherosclerotic vascular calcification seen within the aorta and iliac vessels appear IMPRESSION: 1. Mild to moderate diffuse degenerative changes most pronounced at L5-S1. Findings are associated with mild spondylolisthesis of L5 on S1 related to hypertrophic bony changes about the facet joints. Associated evidence of degenerative disc disease at this level. 2. Mild to moderate (2 to 3 mm) and this protrusion L5-S1 with mild bilateral neural foramina encroachment 3. Suggestion of a mild central disc protrusion L4-5. 4. Mild scoliosis of the thoracolumbar spine convexity to the right. This may be positional. 5. Atherosclerotic vascular changes If needed, a follow-up MRI exam may provide additional detail and assessment.
--- NOTE | 2017-05-26 11:47 | Diagnostic Imaging Report ---
CT scan thoracic spine HISTORY: Pain Total DLP equals 880 CTDI equals 34.6 Axial sections were obtained through the thoracic spine. Additional sagittal and coronal reformatted images are provided. There is generalized osteoporosis throughout the spine. There are mild diffuse degenerative changes with hypertrophic spur formation noted about the anterior margins of all thoracic vertebrae. Mild narrowing of several mid and lower thoracic intervertebral disc spaces. No significant extradural abnormalities are seen. There is mild anterior wedging/compression involving a mid thoracic vertebrae. IMPRESSION: 1. Generalized osteoporosis 2. Mild diffuse degenerative changes 3. Slight anterior wedging/compression involving a midthoracic vertebral body.
--- NOTE | 2017-05-26 14:34 | Cardiology ---
05/25/[address] Panda. M-MODE ECHOCARDIOGRAM: Mitral valve: Anterior leaflet of mitral valve shows normal excursion, EF velocity. Posterior leaflet of the mitral valve shows normal excursion. Left ventricular posterior shows increased thickness, normal excursion. Interventricular septum shows increased thickness, normal excursion, hypertrophy of the left ventricle, ejection fraction 60%. Left atrium normal. Aortic root shows normal dimension, normal excursion of aortic leaflets. CONCLUSION: Hypertrophy of the left ventricle, ejection fraction 60%. 2D ECHO: Long axis view showed normal sized left ventricle with hypertrophy of the left ventricle. Left atrium normal. Aortic root shows normal dimension, normal excursion of the leaflets. Short axis view of mitral valve normal. Short axis view of aortic valve normal. Apical four chamber view showed normal sized left ventricle with hypertrophy of the left ventricle. Left atrium, normal right ventricular cavity, right atrium normal, no pericardial effusion. CONCLUSION: Hypertrophy of the left ventricle, ejection fraction 60%. Doppler study shows mild mitral regurgitation, mild tricuspid regurgitation, mild pulmonary regurgitation. JOB# [id number]
[2017-05-26] MEDS: Diltiazem 30 mg Tab PO SCH (17:19)
[2017-05-26] MEDS: Atorvastatin Calcium 10 MG TAB PO SCH (20:44)
[2017-05-27] MEDS: Diltiazem 30 mg Tab PO SCH ×4 (00:25→17:25)
[2017-05-27 11:08] LABS: INR 1.7 (0.5-1.4); PROTHROMBIN TIME (TEST) 18.2 SECONDS (9.5-11.5)
[2017-05-27] MEDS: Atorvastatin Calcium 10 MG TAB PO SCH (21:56)
--- NOTE | 2017-05-27 22:51 | Progress Notes ---
DATE: 05/27/[address] Chen. Case discussed with staff of the patient, reviewed records. A 76-year-old female, who was admitted on 05/24/2017 with a history of dementia. She has periods of agitation, irritability. She has been on Zyprexa with episodes of anxiety, restlessness. She is confused, unable to make safe plan for self-care or answer questions. Continues to be irritable, continues to have poor insight, continues to be unable to make safe plan for self-care. She is on Aricept 5 mg at bedtime, Namenda 10 mg twice a day and Zyprexa 2.5 mg at bedtime. No side effects, no sedation, or nausea. She seems to have episodes of irritability, agitation, but in general she seems to be taking her medication. I would recommend to continue her medication. Thank you very much for allowing me to participate in the care of this most interesting lady. JOB# [id number]
[2017-05-28] MEDS: Diltiazem 30 mg Tab PO SCH ×4 (00:40→18:02)
--- NOTE | 2017-05-28 03:24 | Progress Notes ---
DATE: 05/27/2017 SUBJECTIVE: The patient was seen in her room, lying in the bed. The patient is a poor historian due to medical condition. Otherwise, the patient appears to be in no acute distress. OBJECTIVE: VITAL SIGNS: Temperature 97.6, heart rate of 68, blood pressure 100/72, respirations of 18, 97% on room air. HEENT: Head is atraumatic and normocephalic. Eyes, bilateral conjunctivae are clear. Bilateral pupils are equally round and reactive. NECK: Supple. No JVD. CARDIOVASCULAR: S1 and S2, without murmur. PULMONARY: Clear to auscultation. GASTROINTESTINAL: Soft and nontender without guarding. Positive bowel sounds. MUSCULOSKELETAL: No clubbing. No cyanosis noted. ASSESSMENT: 1. Dementia. 2. Hypertension. 3. Hyperlipidemia. 4. Gastroesophageal reflux disease. 5. Atrial fibrillation. PLAN: We will keep the patient inpatient in Psychiatric Unit. We will follow up also with a psychiatrist to monitor the patient's condition and behavior. Treatment plans were discussed with the patient's nurse. Treatment plans were discussed with Dr. Panda. JOB# [id number]
[2017-05-28 08:28] LABS: INR 2.05 (0.5-1.4); PROTHROMBIN TIME (TEST) 22.2 SECONDS (9.5-11.5)
--- NOTE | 2017-05-28 09:12 | General Progress Note ---
Subjective - Review of Systems Events since last encounter: patient awake looks anxious , irritable easily Objective - Results Result Diagrams: 05/26/17 04:50 05/26/17 04:50 Recent Labs: Laboratory Last Values WBC 7.2 Th/cmm (4.8-10.8) 05/26/17 04:50 RBC 4.06 Mil/cmm (3.80-5.20) 05/26/17 04:50 Hgb 12.2 gm/dL (12-16) 05/26/17 04:50 Hct 35.4 % (41.0-60) L 05/26/17 04:50 MCV 87.2 fl (81-100) 05/26/17 04:50 MCH 29.9 pg (27.0-31.0) 05/26/17 04:50 MCHC Differential 34.3 pg (28.0-36.0) 05/26/17 04:50 RDW 12.4 % (11.5-20.0) 05/26/17 04:50 Plt Count 221 Th/cmm (150-400) 05/26/17 04:50 MPV 8.6 fl 05/26/17 04:50 Neutrophils % 59.0 % (40.0-80.0) 05/26/17 04:50 Lymphocytes % 28.8 % (20.0-50.0) 05/26/17 04:50 Monocytes % 10.1 % (2.0-10.0) H 05/26/17 04:50 Eosinophils % 1.8 % (0.0-5.0) 05/26/17 04:50 Basophils % 0.3 % (0.0-2.0) 05/26/17 04:50 PT 22.2 SECONDS (9.5-11.5) H 05/28/17 06:06 INR 2.05 (0.5-1.4) H 05/28/17 06:06 PTT (Actin FS) 25.3 SECONDS (26.0-38.0) L 05/26/17 04:50 Sodium 139 mEq/L (136-145) 05/26/17 04:50 Potassium 4.0 mEq/L (3.5-5.1) 05/26/17 04:50 Chloride 103 mEq/L (98-107) 05/26/17 04:50 Carbon Dioxide 29.8 mEq/L (21.0-31.0) 05/26/17 04:50 Anion Gap 10.2 (7.0-16.0) 05/26/17 04:50 BUN 20 mg/dL (7-25) 05/26/17 04:50 Creatinine 0.9 mg/dL (0.6-1.2) 05/26/17 04:50 Est GFR ( Amer) TNP 05/26/17 04:50 Est GFR (Non-Af Amer) TNP 05/26/17 04:50 BUN/Creatinine Ratio 22.2 05/26/17 04:50 Glucose 89 mg/dL (70-105) 05/26/17 04:50 Calcium 9.7 mg/dL (8.6-10.3) 05/26/17 04:50 Total Bilirubin 0.5 mg/dL (0.3-1.0) 05/25/17 05:55 AST 21 U/L (13-39) 05/25/17 05:55 ALT 21 U/L (7-52) 05/25/17 05:55 Alkaline Phosphatase 68 U/L (34-104) 05/25/17 05:55 Creatine Kinase 91 U/L (30-223) 05/24/17 16:02 Troponin I 0.01 ng/mL (0.01-0.05) 05/24/17 16:02 B-Natriuretic Peptide 255.0 pg/mL (5.0-100.0) H 05/25/17 05:55 Total Protein 7.3 gm/dL (6.0-8.3) 05/25/17 05:55 Albumin 3.9 gm/dL (3.7-5.3) 05/25/17 05:55 Globulin 3.4 gm/dL 05/25/17 05:55 Albumin/Globulin Ratio 1.2 (1.0-1.8) 05/25/17 05:55 Triglycerides 99 mg/dL (<150) 05/25/17 05:55 Cholesterol 192 mg/dL (<200) 05/25/17 05:55 LDL Cholesterol Direct 85 mg/dL (75-193) 05/25/17 05:55 HDL Cholesterol 83 mg/dL (23-92) 05/25/17 05:55 TSH 2.24 uIU/ml (0.34-5.60) 05/25/17 05:55 Urine Source CATH 05/25/17 05:00 Urine Color YELLOW 05/25/17 05:00 Urine Clarity CLEAR (CLEAR) 05/25/17 05:00 Urine pH 6.5 (4.6 - 8.0) 05/25/17 05:00 Ur Specific [place] <= 1.005 (1.005-1.030) 05/25/17 05:00 Urine Protein NEGATIVE mg/dL (NEGATIVE) 05/25/17 05:00 Urine Glucose (UA) NEGATIVE mg/dL (NEGATIVE) 05/25/17 05:00 Urine Ketones NEGATIVE mg/dL (NEGATIVE) 05/25/17 05:00 Urine Blood SMALL (NEGATIVE) H 05/25/17 05:00 Urine Nitrate NEGATIVE (NEGATIVE) 05/25/17 05:00 Urine Bilirubin NEGATIVE (NEGATIVE) 05/25/17 05:00 Urine Urobilinogen 0.2 E.U./dL (0.2 - 1.0) 05/25/17 05:00 Ur Leukocyte Esterase NEGATIVE (NEGATIVE) 05/25/17 05:00 Urine RBC 0-2 /hpf (0-5) 05/25/17 05:00 Urine WBC 0-2 /hpf (0-5) 05/25/17 05:00 Ur Epithelial Cells RARE /lpf (FEW) 05/25/17 05:00 Urine Bacteria FEW /hpf (NONE SEEN) 05/25/17 05:00 - Physical Exam Vitals and I&O: Vital Signs Temp 96.9 F 05/28/17 07:46 Pulse 98 05/28/17 07:46 Resp 16 05/28/17 07:46 BP 123/66 05/28/17 08:41 Pulse Ox 97 05/28/17 07:46 Intake & Output 05/27/17 05/28/17 05/28/17 18:59 06:59 18:59 Intake Total 300 Balance 300 Weight (lbs) 42.638 kg 42.547 kg Intake: Oral 300 Other: # Voids 3 # Bowel Movements 0 Active Medications: Current Medications Acetaminophen (Tylenol Extra Strength) 1,000 mg PO Q4H PRN PRN Reason: Pain (Moderate) Stop: 07/23/17 19:51 Acetaminophen (Tylenol) 650 mg PO Q4H PRN PRN Reason: MILD PAIN/TEMP>100 Stop: 07/24/17 01:22 Atorvastatin Calcium (Lipitor) 10 mg PO HS [facility] PRN Reason: Protocol Stop: 07/23/17 20:59 Last Admin: 05/27/17 21:56 Dose: 10 mg Diltiazem HCl (Cardizem) 60 mg PO Q6HR NANCY Stop: 07/25/17 17:59 Last Admin: 05/28/17 05:43 Dose: Not Given Donepezil HCl (Aricept) 5 mg PO DAILY [facility] Stop: 07/24/17 08:59 Last Admin: 05/28/17 08:41 Dose: 5 mg Furosemide (Lasix) 20 mg IVP DAILY NANCY Stop: 07/25/17 08:59 Last Admin: 05/28/17 08:41 Dose: 20 mg Lorazepam (Ativan) 0.5 mg IVP Q6H PRN; Protocol PRN Reason: Agitation Stop: 07/24/17 13:44 Last Admin: 05/26/17 01:11 Dose: 0.5 mg Memantine (Namenda) 10 mg PO BID [facility] Stop: 07/24/17 08:59 Last Admin: 05/28/17 08:41 Dose: 10 mg Olanzapine (Zyprexa) 2.5 mg PO HS [facility] PRN Reason: Protocol Stop: 07/25/17 06:01 Last Admin: 05/27/17 21:56 Dose: 2.5 mg Warfarin Sodium (Coumadin Per Pharmacy) 1 ea [facility] PRN PRN; Protocol PRN Reason: RX MONITORING Stop: 07/24/17 12:16
[2017-05-28] MEDS: Atorvastatin Calcium 10 MG TAB PO SCH (20:48)
--- NOTE | 2017-05-29 02:55 | Progress Notes ---
DATE: 05/28/[address] Chen. Case was discussed with staff of the patient, reviewed records. The patient continues to be confused, demented. Continues to be unable to make safe plan for self-care. Continues to have episodes of disability. Continues to need redirections. She is asleep, continues poor insight. No side effects with the medication, no sedation, no nausea, no extrapyramidal symptoms. Thank you very much for allowing me to participate in the care of this most interesting lady. JOB# [id number]
--- NOTE | 2017-06-03 02:27 | Discharge Summary ---
DATE OF DISCHARGE: 05/28/2017 HOSPITAL COURSE: A 76-year-old female patient. The patient had a history of aggressive behavior and altered mental status. The patient known to have history of psychosis, history of underlying hypertension, hyperlipidemia and dementia. The patient was admitted to the Geropsych unit and the patient had acute psychosis. The patient was started on Zyprexa and was seen by psychiatrist and finally, the patient's condition was stabilized. The patient was in stable condition on 05/28 and was discharged back to where I will follow the patient. MEDICATIONS: See the reconciliation. ACTIVITY: As tolerated. DIET: 2 g sodium diet. CONDITION AT THE TIME OF DISCHARGE: Stable. [facility]# [id number]
== END 2017-05-28 21:15 | disposition home or self-care (01) | DRG 308 ==
LOC: ER 15:15 → TELE 19:38 → UNDODISIN 05-28 13:22 → MSI 05-28 17:37
PROVIDERS: ADMIT Internal Medicine; ATTEND Internal Medicine
DX: I48.91 Unspecified atrial fibrillation (principal); I50.31 Acute diastolic (congestive) heart failure; F03.91 Unspecified dementia, unspecified severity, with behavioral disturbance; F20.9 Schizophrenia, unspecified; I11.0 Hypertensive heart disease with heart failure; E78.5 Hyperlipidemia, unspecified; K21.9 Gastro-esophageal reflux disease without esophagitis; F29 Unspecified psychosis not due to a substance or known physiological condition; M54.5 Low back pain; M81.0 Age-related osteoporosis without current pathological fracture; F41.9 Anxiety disorder, unspecified; F31.9 Bipolar disorder, unspecified; Z83.3 Family history of diabetes mellitus; Z82.49 Family history of ischemic heart disease and other diseases of the circulatory system; Z87.11 Personal history of peptic ulcer disease
CPT/HCPCS: 36415-UA; 72128-TC; 72131-TC; 80048-TC; 80053-TC; 80061-TC; 81001-TC; 82550-TC; 83880-TC; 84443-TC; 84484-TC; 85025-TC; 85610-TC; 93005; J1200; J1630; J1940; J2060

== ENCOUNTER 2017-12-15 14:38 | Inpatient (IN) | payer MEDICARE, MEDICAID ==
[2017-12-15 15:01] LABS: % BASOPHILS 0.5 % (0.0-2.0); % EOSINOPHILS 1.9 % (0.0-5.0); % LYMPHOCYTES 36.5 % (20.0-50.0); % MONOCYTES 9.2 % (2.0-10.0); % NEUTROPHILS 51.9 % (40.0-80.0); EOSINOPHILE ABSOLUTE 0.1 Th/cmm (0.1-0.4); HEMATOCRIT 32.1 % (41.0-60); LYMPHOCYTE ABSOLUTE 1.8 Th/cmm (1.5-3.0); MEAN CELL VOLUME 88.6 fl (81-100); MEAN CORPUSCULAR HEMOGLOBIN 30.4 pg (27.0-31.0); MEAN CORPUSCULAR HGB CONC 34.3 pg (28.0-36.0); MEAN PLATELET VOLUME 7.7 fl; MONOCYTE ABSOLUTE 0.4 Th/cmm (0.3-1.0); NEUTROPHILE ABSOLUTE 2.5 Th/cmm (1.8-8.0); PLATELET COUNT 212 Th/cmm (150-400); RED BLOOD COUNT 3.63 Mil/cmm (3.80-5.20); WHITE BLOOD COUNT 4.8 Th/cmm (4.8-10.8)
--- NOTE | 2017-12-15 15:13 | ED Physician Chart ---
ED Chief Complaint/HPI - Patient Information Date Seen:: 12/15/17 Time Seen:: 14:49 Chief Complaint:: increased agitation History of Present Illness:: increased agitation in a patient with schizophrenia, dementia and Alzheimers. She is trying to climb out of bed and tear off her clothes. Allergies:: Allergies Allergy/AdvReac Type Severity Reaction Status Date / Time Penicillins Allergy Verified 05/30/16 13:57 Pork/Porcine Containing Allergy Verified 05/30/16 14:11 Products Vitals:: Vital Signs - 8 hr 12/15/17 14:49 Temp 97.8 F HR 78 RR 21 BP 119/74 O2 Sat % 100 Historian:: EMS, Medical Records Review:: Transfer documents Reviewed ED Review of Systems - Review of Systems General/Constitutional: No fever, No chills, No weight loss, No weakness, No diaphoresis, No edema, No loss of appetite Skin: No skin lesions, No rash, No bruising Head: No headache, No light-headedness Eyes: No loss of vision, No pain, No diplopia ENT: No earache, No nasal drainage, No sore throat, No tinnitus Neck: No neck pain, No swelling, No thyromegaly, No stiffness, No mass noted Cardio Vascular: No chest pain, No palpitations, No PND, No orthopnea, No edema Pulmonary: No SOB, No cough, No sputum, No wheezing GI: No nausea, No vomiting, No diarrhea, No pain, No melena, No hematochezia, No constipation, No hematemesis G/U: No dysuria, No frequency, No hematuria Musculoskeletal: No bone or joint pain, No back pain, No muscle pain Endocrine: No polyuria, No polydipsia Psychiatric: Prior psych history, Other (danger to herself) Hematopoietic: No bruising, No lymphadenopathy Allergic/Immuno: No urticaria, No angioedema Neurological: No syncope, No focal symptoms, No weakness, No paresthesia, No headache, No seizure, No dizziness, No confusion, No vertigo ED Past Medical History - Past Medical History Obtainable: No Past Medical History: Dementia, Other (atrial fibrillation) Psychiatricy History: Schizophrenia, Dementia Family Medical History - Family Member Mother History Unknown: Yes ED Physical Exam - Physical Examination General/Constitutional: Awake, Well-developed, well-nourished, Alert, GCS 15, Non-toxic appearing, Ambulatory Other Gen/Cons comments:: agitated. Trying to climb out of bed and tear off her clothes. Head: Atraumatic Eyes: Lids, conjuctiva normal Skin: Nl inspection, No rash, No skin lesions, No ecchymosis, Well hydrated, No lymphadenopathy ENMT: External ears, nose nl Neck: Nontender, Full ROM w/o pain, No JVD, No nuchal rigidity, No bruit, No mass, No stridor Respiratory: Nl effort/Exclusion, Clear to Auscultation, No Wheeze/Rhonchi/Rales Cardio Vascular: RRR GI: No tenderness/rebounding/guarding, No organomegaly, No hernia, Normal BS's, Nondistended, No mass/bruits, No McBurney tenderness : No CVA tenderness Extremities: No tenderness or effusion, Full ROM, normal strength in all extremities, No edema, Normal digits & nails Neuro/Psych: Alert/oriented Misc: Normal back, No paraspinal tenderness ED Labs/Radiology/EKG Results - Lab Results Results: Laboratory Tests 12/15/17 14:50 WBC 4.8 RBC 3.63 L Hgb 11.0 L Hct 32.1 L MCV 88.6 MCH 30.4 MCHC Differential 34.3 RDW 12.0 Plt Count 212 MPV 7.7 Neutrophils % 51.9 Lymphocytes % 36.5 Monocytes % 9.2 Eosinophils % 1.9 Basophils % 0.5 ED Assessment - Assessment General Assessment: EKG from 14:54:30 p.m.: normal sinus rhythm with flipped t wave in V1 and V2. [PATIENT IS MEDICALLY CLEARED FOR THE GEROPSYCH UNIT. I PLACED THE PATIENT ON A 5150 SINCE SHE IS A DANGER TO HERSELF. ED Septic Shock - . Is Septic Shock (SBP<90, OR Lactate>4 mmol\L) present?: No - <6hrs of presentation: Vital Signs: Vital Signs - 8 hr 12/15/17 14:49 Temp 97.8 F HR 78 RR 21 BP 119/74 O2 Sat % 100 ED Reassessment (Disposition) - Reassessment Reassessment Condition:: Worsened - Diagnosis Diagnosis:: Increased agitation Alzheimers Dementia Schizophrenia - Patient Disposition Discharge/Transfer:: Acute Care w/in this hosp Admitted to:: [facility] Condition at Disposition:: Stable
[2017-12-15 15:18] LABS: ALB/GLOB RATIO 1.1 (1.0-1.8); ALBUMIN 3.6 gm/dL (3.7-5.3); ALKALINE PHOSPHATASE 56 U/L (34-104); ANION GAP 9.6 (7.0-16.0); BILIRUBIN,TOTAL 0.2 mg/dL (0.3-1.0); BUN - UREA NITROGEN 26 mg/dL (7-25); CALCIUM SERUM 9.3 mg/dL (8.6-10.3); CARBON DIOXIDE 29.4 mEq/L (21.0-31.0); CHLORIDE 105 mEq/L (98-107); CREATININE - SERUM 0.8 mg/dL (0.6-1.2); GLUCOSE 98 mg/dL (70-105); MAGNESIUM 2.3 mg/dL (1.9-2.7); SGOT 17 U/L (13-39); SGPT/ALT 14 U/L (7-52); SODIUM SERUM 140 mEq/L (136-145); TOTAL PROTEIN,SERUM 6.8 gm/dL (6.0-8.3)
[2017-12-15 15:34] LABS: URINE SOURCE CLEAN C
[2017-12-15 15:38] LABS: URINE BILIRUBIN NEGATIVE (NEGATIVE); URINE BLOOD NEGATIVE (NEGATIVE); URINE GLUCOSE (UA) NEGATIVE (NEGATIVE); URINE KETONE NEGATIVE (NEGATIVE); URINE LEUKOCYTE ESTERASE NEGATIVE (NEGATIVE); URINE NITRATE NEGATIVE (NEGATIVE); URINE PH 6.5 (4.6 - 8.0); URINE PROTEIN NEGATIVE (NEGATIVE); URINE UROBILINOGEN 0.2 E.U./dL (0.2 - 1.0)
[2017-12-15 15:41] LABS: URINE CLARITY CLEAR (CLEAR); URINE COLOR YELLOW; URINE MICROSCOPIC INDICATED? YES
[2017-12-15 15:42] LABS: URINE BACTERIA OCCASIONAL /hpf (NONE SEEN); URINE EPITHELIAL CELLS FEW /lpf (FEW); URINE RBC 0-2 /hpf (0-5); URINE WBC 0-2 /hpf (0-5)
[2017-12-15 16:56] VITALS: BP 117/62
[2017-12-15] MEDS ORDERED: Magnesium Hydroxide (MOM) 30 mL UDC PO PRN (16:57)
[2017-12-15] MEDS ORDERED: Maalox 30 mL Cup PO PRN (16:57)
[2017-12-15 17:18] LABS: CHOLESTEROL 179 mg/dL (<200); HDL -HIGH DENSITY LIPOPROTEIN 65 mg/dL (23-92); TRIGLYCERIDES 123 mg/dL (<150)
[2017-12-15] MEDS: Atorvastatin Calcium 10 MG TAB PO SCH (20:48)
[2017-12-16] MEDS: Calcium Carb/Vit D 500 mg/200 U Tab PO SCH (10:00)
[2017-12-16] MEDS: Multivitamin Tab PO SCH (10:00)
[2017-12-16] MEDS: Vitamin D3 2,000 IU SGL PO SCH (10:00)
--- NOTE | 2017-12-16 11:09 | History & Physical ---
ADMIT DATE: 12/16/2017 CHIEF COMPLAINT: Agitation. HISTORY OF PRESENT ILLNESS: This is a 77-year-old female who was admitted from retirement facility through ER of [facility] due to increase in agitation and then from the Emergency Room, the patient was medically cleared and transferred to psychiatric unit. REVIEW OF SYSTEMS: GENERAL: This is a 77-year-old female that appears as stated. No fever. No weakness. HEAD: No headache. No dizziness. EYES: No eye pain, no blurring of vision. NECK: No neck pain or nuchal rigidity. CHEST: No chest pain or palpitation. PULMONARY: No coughing. No shortness of breath. GASTROINTESTINAL: No abdominal pain, no constipation, no diarrhea. MUSCULOSKELETAL: No clubbing. DICTATION ENDS HERE JOB# [id number]
--- NOTE | 2017-12-16 11:15 | History & Physical ---
ADMIT DATE: 12/16/2017 CHIEF COMPLAINT: Agitation. HISTORY OF PRESENT ILLNESS: This is a 77-year-old female who was admitted from a care home facility to the [facility] due to increase in agitation and from the Emergency Room, the patient was medically cleared and transferred to psychiatric unit. REVIEW OF SYSTEMS: GENERAL: This is a 77-year-old female that appears as stated. No weakness. No fever. HEAD: No headache, no dizziness. EYES: No eye pain, no blurry vision. NECK: No neck pain, no nuchal rigidity. CHEST: No chest pain, no palpitation. PULMONARY: No coughing, no shortness of breath. GASTROINTESTINAL: No abdominal pain, no constipation, no diarrhea. MUSCULOSKELETAL: No joint pain, no muscle pain. SOCIAL HISTORY: The patient lives in a care home facility prior to hospitalization. FAMILY HISTORY: Unremarkable. PAST SURGICAL HISTORY: Unremarkable. PAST MEDICAL HISTORY: Includes dementia. PAST MEDICAL HISTORY: Includes hyperlipidemia, osteoarthritis, vitamin D deficiency. PHYSICAL EXAMINATION: VITAL SIGNS: Temperature 97.4, heart rate of 60, blood pressure 100/68, respiration of 18, 97% on room air. GENERAL: This is a 77-year-old female that appears as stated in no acute distress. HEENT: Head is atraumatic, normocephalic. Eyes: Bilateral conjunctivae are clear. Bilateral pupils equally round and reactive. NECK: Supple. No JVD. CARDIOVASCULAR: S1 and S2 without murmur. LUNGS: Clear to auscultation. GASTROINTESTINAL: Soft and nontender without guarding. Positive bowel sounds. MUSCULOSKELETAL: No clubbing. No cyanosis noted. ASSESSMENT: 1. Dementia. 2. Hyperlipidemia. 3. Osteoarthritis. 4. Vitamin D deficiency. PLAN: We will admit the patient to Psychiatric Unit. We will follow up with a psychiatrist to monitor the patient's condition and behavior. We will do medication reconciliation accordingly. Treatment plans were discussed with the patient's nurse. Treatment plans were discussed with Dr. Panda. JOB# [id number]
--- NOTE | 2017-12-16 19:36 | Psychiatric Evaluation ---
DATE OF SERVICE: 12/16/2017 PSYCHIATRIC INITIAL EVALUATION AND MENTAL STATUS EXAM AGE: 77. SEX: Female. PHYSICIAN: Dr. Chen. CHIEF COMPLAINT: 5150 hold for danger to self and grave disability. HISTORY OF PRESENT ILLNESS: The patient is a 77-year-old female who was placed on a 5150 hold for danger to self and grave disability. The patient was agitated and she was climbing out of bed. The patient also has not been able to care for herself. The patient has been agitated. The patient also has been confused and has difficulty following directions. She had history of dementia. PAST PSYCHIATRIC HISTORY: The patient has history of multiple psychiatric hospitalizations for treatment of dementia and psychosis. PAST MEDICAL HISTORY: The patient has no major medical problems upon admission. SOCIAL HISTORY: The patient lives in a residential and no known alcohol or drug use. ALLERGIES: No known allergies. MENTAL STATUS EXAMINATION: The patient appears slightly older than his stated age. Agitated. Confused. Irritable mood. Disorganized thoughts and unable to carry on coherent conversation. The patient did not answer questions regarding hallucinations or delusions, but actively responding to stimuli. The patient denied suicidal or homicidal ideations. The patient is alert, but seems to be disoriented to time, place, person and situation. Impaired immediate and recent memory, but intact remote memory. Poor insight and poor judgment. ASSESSMENT: PRIMARY DIAGNOSIS: Unspecified psychosis. SECONDARY DIAGNOSIS: Dementia, moderate to severe, with psychotic features. TREATMENT PLAN: We will monitor the patient's behavior and her condition closely. We will continue Aricept and Zyprexa and will adjust the dose. ESTIMATED LENGTH OF STAY: 5-7 days. THE PATIENT'S STRENGTHS AND WEAKNESSES: The patient's strength is not clear at this time. Weaknesses is ineffective coping and poor judgment. AFTER DISCHARGE PLAN: Outpatient treatment and followup will continue as an outpatient. CRITERIA FOR DISCHARGE: The patient will not be agitated and psychotic and will stabilize psychotropic medications. [facility]# [id number]
[2017-12-16] MEDS: Atorvastatin Calcium 10 MG TAB PO SCH (21:40)
[2017-12-17] MEDS: Multivitamin Tab PO SCH (08:52)
[2017-12-17] MEDS: Vitamin D3 2,000 IU SGL PO SCH (08:52)
[2017-12-17] MEDS: Calcium Carb/Vit D 500 mg/200 U Tab PO SCH (08:52)
--- NOTE | 2017-12-17 09:17 | General Progress Note ---
Subjective - Review of Systems Events since last encounter: patient admitted for increase agitation awake alert still irritable and confused Objective - Results Result Diagrams: 12/15/17 14:50 12/15/17 14:50 Recent Labs: Laboratory Last Values WBC 4.8 Th/cmm (4.8-10.8) 12/15/17 14:50 RBC 3.63 Mil/cmm (3.80-5.20) L 12/15/17 14:50 Hgb 11.0 gm/dL (12-16) L 12/15/17 14:50 Hct 32.1 % (41.0-60) L 12/15/17 14:50 MCV 88.6 fl (81-100) 12/15/17 14:50 MCH 30.4 pg (27.0-31.0) 12/15/17 14:50 MCHC Differential 34.3 pg (28.0-36.0) 12/15/17 14:50 RDW 12.0 % (11.5-20.0) 12/15/17 14:50 Plt Count 212 Th/cmm (150-400) 12/15/17 14:50 MPV 7.7 fl 12/15/17 14:50 Neutrophils % 51.9 % (40.0-80.0) 12/15/17 14:50 Lymphocytes % 36.5 % (20.0-50.0) 12/15/17 14:50 Monocytes % 9.2 % (2.0-10.0) 12/15/17 14:50 Eosinophils % 1.9 % (0.0-5.0) 12/15/17 14:50 Basophils % 0.5 % (0.0-2.0) 12/15/17 14:50 Sodium 140 mEq/L (136-145) 12/15/17 14:50 Potassium 4.0 mEq/L (3.5-5.1) 12/15/17 14:50 Chloride 105 mEq/L (98-107) 12/15/17 14:50 Carbon Dioxide 29.4 mEq/L (21.0-31.0) 12/15/17 14:50 Anion Gap 9.6 (7.0-16.0) 12/15/17 14:50 BUN 26 mg/dL (7-25) H 12/15/17 14:50 Creatinine 0.8 mg/dL (0.6-1.2) 12/15/17 14:50 Est GFR ( Amer) TNP 12/15/17 14:50 Est GFR (Non-Af Amer) TNP 12/15/17 14:50 BUN/Creatinine Ratio 32.5 12/15/17 14:50 Glucose 98 mg/dL (70-105) 12/15/17 14:50 Calcium 9.3 mg/dL (8.6-10.3) 12/15/17 14:50 Phosphorus 4.0 mg/dL (2.5-5.0) 12/15/17 14:50 Magnesium 2.3 mg/dL (1.9-2.7) 12/15/17 14:50 Total Bilirubin 0.2 mg/dL (0.3-1.0) L 12/15/17 14:50 AST 17 U/L (13-39) 12/15/17 14:50 ALT 14 U/L (7-52) 12/15/17 14:50 Alkaline Phosphatase 56 U/L (34-104) 12/15/17 14:50 Total Protein 6.8 gm/dL (6.0-8.3) 12/15/17 14:50 Albumin 3.6 gm/dL (3.7-5.3) L 12/15/17 14:50 Globulin 3.2 gm/dL 12/15/17 14:50 Albumin/Globulin Ratio 1.1 (1.0-1.8) 12/15/17 14:50 Triglycerides 123 mg/dL (<150) 12/15/17 14:50 Cholesterol 179 mg/dL (<200) 12/15/17 14:50 LDL Cholesterol Direct 82 mg/dL (75-193) 12/15/17 14:50 HDL Cholesterol 65 mg/dL (23-92) 12/15/17 14:50 Urine Source CLEAN C 12/15/17 15:30 Urine Color YELLOW 12/15/17 15:30 Urine Clarity CLEAR (CLEAR) 12/15/17 15:30 Urine pH 6.5 (4.6 - 8.0) 12/15/17 15:30 Ur Specific [place] <= 1.005 (1.005-1.030) 12/15/17 15:30 Urine Protein NEGATIVE mg/dL (NEGATIVE) 12/15/17 15:30 Urine Glucose (UA) NEGATIVE mg/dL (NEGATIVE) 12/15/17 15:30 Urine Ketones NEGATIVE mg/dL (NEGATIVE) 12/15/17 15:30 Urine Blood NEGATIVE (NEGATIVE) 12/15/17 15:30 Urine Nitrate NEGATIVE (NEGATIVE) 12/15/17 15:30 Urine Bilirubin NEGATIVE (NEGATIVE) 12/15/17 15:30 Urine Urobilinogen 0.2 E.U./dL (0.2 - 1.0) 12/15/17 15:30 Ur Leukocyte Esterase NEGATIVE (NEGATIVE) 12/15/17 15:30 Urine RBC 0-2 /hpf (0-5) 12/15/17 15:30 Urine WBC 0-2 /hpf (0-5) 12/15/17 15:30 Ur Epithelial Cells FEW /lpf (FEW) 12/15/17 15:30 Urine Bacteria OCCASIONAL /hpf (NONE SEEN) 12/15/17 15:30 - Physical Exam Vitals and I&O: Vital Signs Temp 97.8 F 12/16/17 20:00 Pulse 76 12/16/17 20:00 Resp 18 12/16/17 20:00 BP 96/56 12/16/17 20:00 Pulse Ox 97 12/16/17 20:00 Intake & Output 12/16/17 12/17/17 12/17/17 18:59 06:59 18:59 Intake Total 800 120 Output Total 4 Balance 796 120 Intake: Oral 800 120 Output: Urine 4 Stool 0 Other: # Voids 3 Active Medications: Current Medications Acetaminophen (Tylenol) 650 mg PO Q4HR PRN PRN Reason: Mild Pain 1-3/ Temp above 100 Stop: 02/13/18 16:56 Acetaminophen (Tylenol Extra Strength) 1,000 mg PO Q4H PRN PRN Reason: Pain (Moderate) Stop: 02/13/18 17:50 Al Hydrox/Mg Hydrox/Simethicone (Maalox) 30 ml PO Q4HR PRN PRN Reason: GI DISTRESS Stop: 02/13/18 16:56 Atorvastatin Calcium (Lipitor) 10 mg PO HS NANCY; Protocol Stop: 02/13/18 20:59 Last Admin: 12/16/17 21:40 Dose: 10 mg Calcium/Vitamin D (Oscal W/Vitamin D) 1 tab PO DAILY NANCY Stop: 02/14/18 08:59 Last Admin: 12/17/17 08:52 Dose: 1 tab Donepezil HCl (Aricept) 5 mg PO DAILY NANCY Stop: 02/14/18 08:59 Last Admin: 12/17/17 08:52 Dose: 5 mg Lorazepam (Ativan) 0.5 mg PO Q4HR PRN; Protocol PRN Reason: Agitation Stop: 01/14/18 16:56 Magnesium Hydroxide (Milk Of Magnesia) 30 ml PO HS PRN PRN Reason: Constipation Memantine (Namenda) 10 mg PO BID NANCY Stop: 02/14/18 08:59 Last Admin: 12/17/17 08:52 Dose: 10 mg Multivitamins/Vitamin C (Theragran) 1 tab PO DAILY NANCY Stop: 02/14/18 08:59 Last Admin: 12/17/17 08:52 Dose: 1 tab Olanzapine (Zyprexa) 2.5 mg PO HS NANCY; Protocol Stop: 02/14/18 20:59 Last Admin: 12/16/17 21:41 Dose: Not Given Vitamin D (Vitamin D3) 2,000 iu PO DAILY NANCY Stop: 02/14/18 08:59 Last Admin: 12/17/17 08:52 Dose: 2,000 iu Zolpidem Tartrate (Ambien) 5 mg PO HS PRN PRN Reason: Insomnia Stop: 02/13/18 16:56 General: No acute distress HEENT: Atraumatic, PERRLA Neck: Supple Cardiovascular: Regular rate Lungs: Clear to auscultation Abdomen: Bowel sounds Assessment/Plan - Problem List Patient Problems: All Active Problems Dementia (Acute) F03.90 Hyperlipidemia (Acute) E78.5 INCREASED AGITATION, STRIKING OUT (Acute) Osteoarthritis (Acute) M19.90 Vitamin D deficiency (Acute) E55.9 - Plan Plan: cpm
--- NOTE | 2017-12-17 17:28 | Progress Notes ---
DATE: 12/17/2017 SUBJECTIVE: Chart reviewed and the patient interviewed. Also, discussed the patient's condition with the staff and reviewed records and labs. The patient seems to be somewhat drowsy this morning, but she is still confused. The patient is oriented only to self. The patient also still gets agitated and aggressive, especially during helping her with her ADLs. She also is still seems to be slightly suspicious and paranoid. Otherwise, the patient is cooperative in regard to taking her medications with no side effects of medications. ASSESSMENT: The patient is still psychotic and confused. TREATMENT PLAN: Continue to monitor behavior and condition closely. Also, continue adjusting psychotropic medications and followup. JOB# [id number]
[2017-12-17] MEDS: Atorvastatin Calcium 10 MG TAB PO SCH (21:35)
[2017-12-18] MEDS: Vitamin D3 2,000 IU SGL PO SCH (09:03)
[2017-12-18] MEDS: Multivitamin Tab PO SCH (09:03)
[2017-12-18] MEDS: Calcium Carb/Vit D 500 mg/200 U Tab PO SCH (09:03)
--- NOTE | 2017-12-18 11:39 | General Progress Note ---
Subjective - Review of Systems Events since last encounter: confused paranoid in no pain Objective - Results Result Diagrams: 12/15/17 14:50 12/15/17 14:50 Recent Labs: Laboratory Last Values WBC 4.8 Th/cmm (4.8-10.8) 12/15/17 14:50 RBC 3.63 Mil/cmm (3.80-5.20) L 12/15/17 14:50 Hgb 11.0 gm/dL (12-16) L 12/15/17 14:50 Hct 32.1 % (41.0-60) L 12/15/17 14:50 MCV 88.6 fl (81-100) 12/15/17 14:50 MCH 30.4 pg (27.0-31.0) 12/15/17 14:50 MCHC Differential 34.3 pg (28.0-36.0) 12/15/17 14:50 RDW 12.0 % (11.5-20.0) 12/15/17 14:50 Plt Count 212 Th/cmm (150-400) 12/15/17 14:50 MPV 7.7 fl 12/15/17 14:50 Neutrophils % 51.9 % (40.0-80.0) 12/15/17 14:50 Lymphocytes % 36.5 % (20.0-50.0) 12/15/17 14:50 Monocytes % 9.2 % (2.0-10.0) 12/15/17 14:50 Eosinophils % 1.9 % (0.0-5.0) 12/15/17 14:50 Basophils % 0.5 % (0.0-2.0) 12/15/17 14:50 Sodium 140 mEq/L (136-145) 12/15/17 14:50 Potassium 4.0 mEq/L (3.5-5.1) 12/15/17 14:50 Chloride 105 mEq/L (98-107) 12/15/17 14:50 Carbon Dioxide 29.4 mEq/L (21.0-31.0) 12/15/17 14:50 Anion Gap 9.6 (7.0-16.0) 12/15/17 14:50 BUN 26 mg/dL (7-25) H 12/15/17 14:50 Creatinine 0.8 mg/dL (0.6-1.2) 12/15/17 14:50 Est GFR ( Amer) TNP 12/15/17 14:50 Est GFR (Non-Af Amer) TNP 12/15/17 14:50 BUN/Creatinine Ratio 32.5 12/15/17 14:50 Glucose 98 mg/dL (70-105) 12/15/17 14:50 Calcium 9.3 mg/dL (8.6-10.3) 12/15/17 14:50 Phosphorus 4.0 mg/dL (2.5-5.0) 12/15/17 14:50 Magnesium 2.3 mg/dL (1.9-2.7) 12/15/17 14:50 Total Bilirubin 0.2 mg/dL (0.3-1.0) L 12/15/17 14:50 AST 17 U/L (13-39) 12/15/17 14:50 ALT 14 U/L (7-52) 12/15/17 14:50 Alkaline Phosphatase 56 U/L (34-104) 12/15/17 14:50 Total Protein 6.8 gm/dL (6.0-8.3) 12/15/17 14:50 Albumin 3.6 gm/dL (3.7-5.3) L 12/15/17 14:50 Globulin 3.2 gm/dL 12/15/17 14:50 Albumin/Globulin Ratio 1.1 (1.0-1.8) 12/15/17 14:50 Triglycerides 123 mg/dL (<150) 12/15/17 14:50 Cholesterol 179 mg/dL (<200) 12/15/17 14:50 LDL Cholesterol Direct 82 mg/dL (75-193) 12/15/17 14:50 HDL Cholesterol 65 mg/dL (23-92) 12/15/17 14:50 Urine Source CLEAN C 12/15/17 15:30 Urine Color YELLOW 12/15/17 15:30 Urine Clarity CLEAR (CLEAR) 12/15/17 15:30 Urine pH 6.5 (4.6 - 8.0) 12/15/17 15:30 Ur Specific [place] <= 1.005 (1.005-1.030) 12/15/17 15:30 Urine Protein NEGATIVE mg/dL (NEGATIVE) 12/15/17 15:30 Urine Glucose (UA) NEGATIVE mg/dL (NEGATIVE) 12/15/17 15:30 Urine Ketones NEGATIVE mg/dL (NEGATIVE) 12/15/17 15:30 Urine Blood NEGATIVE (NEGATIVE) 12/15/17 15:30 Urine Nitrate NEGATIVE (NEGATIVE) 12/15/17 15:30 Urine Bilirubin NEGATIVE (NEGATIVE) 12/15/17 15:30 Urine Urobilinogen 0.2 E.U./dL (0.2 - 1.0) 12/15/17 15:30 Ur Leukocyte Esterase NEGATIVE (NEGATIVE) 12/15/17 15:30 Urine RBC 0-2 /hpf (0-5) 12/15/17 15:30 Urine WBC 0-2 /hpf (0-5) 12/15/17 15:30 Ur Epithelial Cells FEW /lpf (FEW) 12/15/17 15:30 Urine Bacteria OCCASIONAL /hpf (NONE SEEN) 12/15/17 15:30 - Physical Exam Vitals and I&O: Vital Signs Temp 97.2 F 12/17/17 20:00 Pulse 82 12/17/17 20:00 Resp 18 12/17/17 20:00 BP 126/77 12/17/17 20:00 Pulse Ox 98 12/17/17 20:00 Intake & Output 12/17/17 12/18/17 12/18/17 18:59 06:59 18:59 Intake Total 800 120 Balance 800 120 Intake: Oral 800 120 Other: # Voids 4 3 # Bowel Movements 1 1 Active Medications: Current Medications Acetaminophen (Tylenol) 650 mg PO Q4HR PRN PRN Reason: Mild Pain 1-3/ Temp above 100 Stop: 02/13/18 16:56 Acetaminophen (Tylenol Extra Strength) 1,000 mg PO Q4H PRN PRN Reason: Pain (Moderate) Stop: 02/13/18 17:50 Al Hydrox/Mg Hydrox/Simethicone (Maalox) 30 ml PO Q4HR PRN PRN Reason: GI DISTRESS Stop: 02/13/18 16:56 Atorvastatin Calcium (Lipitor) 10 mg PO HS NANCY; Protocol Stop: 02/13/18 20:59 Last Admin: 12/17/17 21:35 Dose: Not Given Calcium/Vitamin D (Oscal W/Vitamin D) 1 tab PO DAILY NANCY Stop: 02/14/18 08:59 Last Admin: 12/18/17 09:03 Dose: 1 tab Donepezil HCl (Aricept) 5 mg PO DAILY NANCY Stop: 02/14/18 08:59 Last Admin: 12/18/17 09:03 Dose: 5 mg Lorazepam (Ativan) 0.5 mg PO Q4HR PRN; Protocol PRN Reason: Agitation Stop: 01/14/18 16:56 Last Admin: 12/18/17 00:15 Dose: 0.5 mg Magnesium Hydroxide (Milk Of Magnesia) 30 ml PO HS PRN PRN Reason: Constipation Memantine (Namenda) 10 mg PO BID NANCY Stop: 02/14/18 08:59 Last Admin: 12/18/17 09:03 Dose: 10 mg Multivitamins/Vitamin C (Theragran) 1 tab PO DAILY NANCY Stop: 02/14/18 08:59 Last Admin: 12/18/17 09:03 Dose: 1 tab Olanzapine (Zyprexa) 2.5 mg PO HS NANCY; Protocol Stop: 02/14/18 20:59 Last Admin: 12/17/17 21:35 Dose: Not Given Vitamin D (Vitamin D3) 2,000 iu PO DAILY NANCY Stop: 02/14/18 08:59 Last Admin: 12/18/17 09:03 Dose: 2,000 iu Zolpidem Tartrate (Ambien) 5 mg PO HS PRN PRN Reason: Insomnia Stop: 02/13/18 16:56 General: No acute distress HEENT: Atraumatic, PERRLA Neck: Supple Cardiovascular: Regular rate Lungs: Clear to auscultation Abdomen: Bowel sounds Assessment/Plan - Problem List Patient Problems: All Active Problems Dementia (Acute) F03.90 Hyperlipidemia (Acute) E78.5 INCREASED AGITATION, STRIKING OUT (Acute) Osteoarthritis (Acute) M19.90 Vitamin D deficiency (Acute) E55.9 - Plan Plan: cpm
[2017-12-18] MEDS: Acetaminophen 500 MG TAB PO PRN (13:47)
[2017-12-18] MEDS: Atorvastatin Calcium 10 MG TAB PO SCH (21:17)
--- NOTE | 2017-12-19 06:12 | Progress Notes ---
DATE: 12/18/2017 PSYCHIATRIC PROGRESS NOTE SUBJECTIVE: Chart reviewed and the patient interviewed. Also discussed the patient's condition with the staff and reviewed records and labs. The patient is still forgetful and she is still wandering around the unit and needs a lot of redirections. She also still has episodes of agitation and confusion. The patient also is still unable to follow directions. Otherwise, the patient is compliant with taking her medications with no side effects of medications. ASSESSMENT: The patient is still confused and is still agitated. TREATMENT PLAN: Continue to monitor behavior and condition closely. Also, continue to work on behavioral modifications and adjusting psychotropic medications. JOB# [id number]
[2017-12-19] MEDS: Vitamin D3 2,000 IU SGL PO SCH (08:37)
[2017-12-19] MEDS: Multivitamin Tab PO SCH (08:37)
[2017-12-19] MEDS: Acetaminophen 500 MG TAB PO PRN (08:38)
[2017-12-19] MEDS: Calcium Carb/Vit D 500 mg/200 U Tab PO SCH (08:38)
--- NOTE | 2017-12-19 12:20 | Internal Medicine Prog Note ---
Internal Medicine Subjective - Subjective Service Date: 12/19/17 Patient seen and examined:: with staff Patient is:: awake Per staff patient has:: tolerating meds Internal Medicine Objective - Results Result Diagrams: 12/15/17 14:50 12/15/17 14:50 Recent Labs: Laboratory Last Values WBC 4.8 Th/cmm (4.8-10.8) 12/15/17 14:50 RBC 3.63 Mil/cmm (3.80-5.20) L 12/15/17 14:50 Hgb 11.0 gm/dL (12-16) L 12/15/17 14:50 Hct 32.1 % (41.0-60) L 12/15/17 14:50 MCV 88.6 fl (81-100) 12/15/17 14:50 MCH 30.4 pg (27.0-31.0) 12/15/17 14:50 MCHC Differential 34.3 pg (28.0-36.0) 12/15/17 14:50 RDW 12.0 % (11.5-20.0) 12/15/17 14:50 Plt Count 212 Th/cmm (150-400) 12/15/17 14:50 MPV 7.7 fl 12/15/17 14:50 Neutrophils % 51.9 % (40.0-80.0) 12/15/17 14:50 Lymphocytes % 36.5 % (20.0-50.0) 12/15/17 14:50 Monocytes % 9.2 % (2.0-10.0) 12/15/17 14:50 Eosinophils % 1.9 % (0.0-5.0) 12/15/17 14:50 Basophils % 0.5 % (0.0-2.0) 12/15/17 14:50 Sodium 140 mEq/L (136-145) 12/15/17 14:50 Potassium 4.0 mEq/L (3.5-5.1) 12/15/17 14:50 Chloride 105 mEq/L (98-107) 12/15/17 14:50 Carbon Dioxide 29.4 mEq/L (21.0-31.0) 12/15/17 14:50 Anion Gap 9.6 (7.0-16.0) 12/15/17 14:50 BUN 26 mg/dL (7-25) H 12/15/17 14:50 Creatinine 0.8 mg/dL (0.6-1.2) 12/15/17 14:50 Est GFR ( Amer) TNP 12/15/17 14:50 Est GFR (Non-Af Amer) TNP 12/15/17 14:50 BUN/Creatinine Ratio 32.5 12/15/17 14:50 Glucose 98 mg/dL (70-105) 12/15/17 14:50 Calcium 9.3 mg/dL (8.6-10.3) 12/15/17 14:50 Phosphorus 4.0 mg/dL (2.5-5.0) 12/15/17 14:50 Magnesium 2.3 mg/dL (1.9-2.7) 12/15/17 14:50 Total Bilirubin 0.2 mg/dL (0.3-1.0) L 12/15/17 14:50 AST 17 U/L (13-39) 12/15/17 14:50 ALT 14 U/L (7-52) 12/15/17 14:50 Alkaline Phosphatase 56 U/L (34-104) 12/15/17 14:50 Total Protein 6.8 gm/dL (6.0-8.3) 12/15/17 14:50 Albumin 3.6 gm/dL (3.7-5.3) L 12/15/17 14:50 Globulin 3.2 gm/dL 12/15/17 14:50 Albumin/Globulin Ratio 1.1 (1.0-1.8) 12/15/17 14:50 Triglycerides 123 mg/dL (<150) 12/15/17 14:50 Cholesterol 179 mg/dL (<200) 12/15/17 14:50 LDL Cholesterol Direct 82 mg/dL (75-193) 12/15/17 14:50 HDL Cholesterol 65 mg/dL (23-92) 12/15/17 14:50 Urine Source CLEAN C 12/15/17 15:30 Urine Color YELLOW 12/15/17 15:30 Urine Clarity CLEAR (CLEAR) 12/15/17 15:30 Urine pH 6.5 (4.6 - 8.0) 12/15/17 15:30 Ur Specific [place] <= 1.005 (1.005-1.030) 12/15/17 15:30 Urine Protein NEGATIVE mg/dL (NEGATIVE) 12/15/17 15:30 Urine Glucose (UA) NEGATIVE mg/dL (NEGATIVE) 12/15/17 15:30 Urine Ketones NEGATIVE mg/dL (NEGATIVE) 12/15/17 15:30 Urine Blood NEGATIVE (NEGATIVE) 12/15/17 15:30 Urine Nitrate NEGATIVE (NEGATIVE) 12/15/17 15:30 Urine Bilirubin NEGATIVE (NEGATIVE) 12/15/17 15:30 Urine Urobilinogen 0.2 E.U./dL (0.2 - 1.0) 12/15/17 15:30 Ur Leukocyte Esterase NEGATIVE (NEGATIVE) 12/15/17 15:30 Urine RBC 0-2 /hpf (0-5) 12/15/17 15:30 Urine WBC 0-2 /hpf (0-5) 12/15/17 15:30 Ur Epithelial Cells FEW /lpf (FEW) 12/15/17 15:30 Urine Bacteria OCCASIONAL /hpf (NONE SEEN) 12/15/17 15:30 - Physical Exam Vitals and I&O: Vital Signs Temp 97.1 F 12/18/17 20:41 Pulse 96 12/18/17 20:41 Resp 20 12/18/17 20:41 BP 141/98 12/18/17 20:41 Pulse Ox 93 12/18/17 20:41 Intake & Output 12/18/17 12/19/17 12/19/17 18:59 06:59 18:59 Intake Total 1070 Balance 1070 Intake: Oral 1070 Other: # Voids 3 # Bowel Movements 0 Active Medications: Current Medications Acetaminophen (Tylenol) 650 mg PO Q4HR PRN PRN Reason: Mild Pain 1-3/ Temp above 100 Stop: 02/13/18 16:56 Acetaminophen (Tylenol Extra Strength) 1,000 mg PO Q4H PRN PRN Reason: Pain (Moderate) Stop: 02/13/18 17:50 Last Admin: 12/19/17 08:38 Dose: 1,000 mg Al Hydrox/Mg Hydrox/Simethicone (Maalox) 30 ml PO Q4HR PRN PRN Reason: GI DISTRESS Stop: 02/13/18 16:56 Atorvastatin Calcium (Lipitor) 10 mg PO HS NANCY; Protocol Stop: 02/13/18 20:59 Last Admin: 12/18/17 21:17 Dose: 10 mg Calcium/Vitamin D (Oscal W/Vitamin D) 1 tab PO DAILY NANCY Stop: 02/14/18 08:59 Last Admin: 12/19/17 08:38 Dose: 1 tab Donepezil HCl (Aricept) 5 mg PO DAILY NANCY Stop: 02/14/18 08:59 Last Admin: 12/19/17 08:37 Dose: 5 mg Lorazepam (Ativan) 0.5 mg PO Q4HR PRN; Protocol PRN Reason: Agitation Stop: 01/14/18 16:56 Last Admin: 12/19/17 08:38 Dose: 0.5 mg Magnesium Hydroxide (Milk Of Magnesia) 30 ml PO HS PRN PRN Reason: Constipation Memantine (Namenda) 10 mg PO BID NANCY Stop: 02/14/18 08:59 Last Admin: 12/19/17 08:38 Dose: 10 mg Multivitamins/Vitamin C (Theragran) 1 tab PO DAILY NANCY Stop: 02/14/18 08:59 Last Admin: 12/19/17 08:37 Dose: 1 tab Olanzapine (Zyprexa) 5 mg PO HS NANCY; Protocol Stop: 02/17/18 20:59 Olanzapine (Zyprexa) 2.5 mg PO DAILY NANCY; Protocol Stop: 02/17/18 08:59 Vitamin D (Vitamin D3) 2,000 iu PO DAILY NANCY Stop: 02/14/18 08:59 Last Admin: 12/19/17 08:37 Dose: 2,000 iu Zolpidem Tartrate (Ambien) 5 mg PO HS PRN PRN Reason: Insomnia Stop: 02/13/18 16:56 General: alert HEENT: NC/AT Neck: Supple Lungs: CTAB Cardiovascular: RRR, Normal S1, Normal S2, without murmur Extremities: excoriation Internal Medicine Assmt/Plan - Assessment Assessment: Dementia (Acute) F03.90 Hyperlipidemia (Acute) E78.5 INCREASED AGITATION, STRIKING OUT (Acute) Osteoarthritis (Acute) M19.90 Vitamin D deficiency (Acute) E55.9 - Plan Plan: cpm
--- NOTE | 2017-12-19 19:54 | Progress Notes ---
DATE: 12/19/2017 SUBJECTIVE: Chart reviewed and the patient interviewed. Also, discussed the patient's condition with the staff and reviewed records and labs. The patient is extremely agitated this morning and she has been banging on the Martina chair and has been loud and interruptive to others and unable to follow staff directions with poor impulse control. She also still had constricted affect. Otherwise, the patient continued to take Namenda, Zyprexa and Aricept. ASSESSMENT: The patient is still agitated and is still psychotic. TREATMENT PLAN: We will increase Zyprexa to 2.5 mg in the morning and 5 mg at bedtime and we will continue to follow up. [facility]# [id number]
[2017-12-19] MEDS: Atorvastatin Calcium 10 MG TAB PO SCH (21:32)
--- NOTE | 2017-12-20 08:37 | Progress Notes ---
DATE: SUBJECTIVE: Chart reviewed and the patient interviewed. Also discussed the patient's condition with the staff and reviewed records and labs. The patient still has episodes of irritability and agitation, was banging on the bed rails. She seems to be slightly calmer today than yesterday. She is still complaining of headache in the morning. She also still has episodes of combative behavior. Otherwise, the patient is compliant with taking her medications with no side effects of medications. ASSESSMENT: The patient still has episodes of agitation. TREATMENT PLAN: I increased the Zyprexa yesterday to 2.5 mg in the morning and 5 mg at bedtime. We will continue current dose. Also, we will increase today Aricept to 10 mg every day and we will continue to follow up. JOB# [id number]
[2017-12-20] MEDS: Vitamin D3 2,000 IU SGL PO SCH (08:46)
[2017-12-20] MEDS: Multivitamin Tab PO SCH (08:46)
[2017-12-20] MEDS: Calcium Carb/Vit D 500 mg/200 U Tab PO SCH (08:46)
--- NOTE | 2017-12-20 16:47 | Internal Medicine Prog Note ---
Internal Medicine Subjective - Subjective Patient is:: awake Per staff patient has:: tolerating meds Internal Medicine Objective - Results Result Diagrams: 12/15/17 14:50 12/15/17 14:50 Recent Labs: Laboratory Last Values WBC 4.8 Th/cmm (4.8-10.8) 12/15/17 14:50 RBC 3.63 Mil/cmm (3.80-5.20) L 12/15/17 14:50 Hgb 11.0 gm/dL (12-16) L 12/15/17 14:50 Hct 32.1 % (41.0-60) L 12/15/17 14:50 MCV 88.6 fl (81-100) 12/15/17 14:50 MCH 30.4 pg (27.0-31.0) 12/15/17 14:50 MCHC Differential 34.3 pg (28.0-36.0) 12/15/17 14:50 RDW 12.0 % (11.5-20.0) 12/15/17 14:50 Plt Count 212 Th/cmm (150-400) 12/15/17 14:50 MPV 7.7 fl 12/15/17 14:50 Neutrophils % 51.9 % (40.0-80.0) 12/15/17 14:50 Lymphocytes % 36.5 % (20.0-50.0) 12/15/17 14:50 Monocytes % 9.2 % (2.0-10.0) 12/15/17 14:50 Eosinophils % 1.9 % (0.0-5.0) 12/15/17 14:50 Basophils % 0.5 % (0.0-2.0) 12/15/17 14:50 Sodium 140 mEq/L (136-145) 12/15/17 14:50 Potassium 4.0 mEq/L (3.5-5.1) 12/15/17 14:50 Chloride 105 mEq/L (98-107) 12/15/17 14:50 Carbon Dioxide 29.4 mEq/L (21.0-31.0) 12/15/17 14:50 Anion Gap 9.6 (7.0-16.0) 12/15/17 14:50 BUN 26 mg/dL (7-25) H 12/15/17 14:50 Creatinine 0.8 mg/dL (0.6-1.2) 12/15/17 14:50 Est GFR ( Amer) TNP 12/15/17 14:50 Est GFR (Non-Af Amer) TNP 12/15/17 14:50 BUN/Creatinine Ratio 32.5 12/15/17 14:50 Glucose 98 mg/dL (70-105) 12/15/17 14:50 Calcium 9.3 mg/dL (8.6-10.3) 12/15/17 14:50 Phosphorus 4.0 mg/dL (2.5-5.0) 12/15/17 14:50 Magnesium 2.3 mg/dL (1.9-2.7) 12/15/17 14:50 Total Bilirubin 0.2 mg/dL (0.3-1.0) L 12/15/17 14:50 AST 17 U/L (13-39) 12/15/17 14:50 ALT 14 U/L (7-52) 12/15/17 14:50 Alkaline Phosphatase 56 U/L (34-104) 12/15/17 14:50 Total Protein 6.8 gm/dL (6.0-8.3) 12/15/17 14:50 Albumin 3.6 gm/dL (3.7-5.3) L 12/15/17 14:50 Globulin 3.2 gm/dL 12/15/17 14:50 Albumin/Globulin Ratio 1.1 (1.0-1.8) 12/15/17 14:50 Triglycerides 123 mg/dL (<150) 12/15/17 14:50 Cholesterol 179 mg/dL (<200) 12/15/17 14:50 LDL Cholesterol Direct 82 mg/dL (75-193) 12/15/17 14:50 HDL Cholesterol 65 mg/dL (23-92) 12/15/17 14:50 Urine Source CLEAN C 12/15/17 15:30 Urine Color YELLOW 12/15/17 15:30 Urine Clarity CLEAR (CLEAR) 12/15/17 15:30 Urine pH 6.5 (4.6 - 8.0) 12/15/17 15:30 Ur Specific [place] <= 1.005 (1.005-1.030) 12/15/17 15:30 Urine Protein NEGATIVE mg/dL (NEGATIVE) 12/15/17 15:30 Urine Glucose (UA) NEGATIVE mg/dL (NEGATIVE) 12/15/17 15:30 Urine Ketones NEGATIVE mg/dL (NEGATIVE) 12/15/17 15:30 Urine Blood NEGATIVE (NEGATIVE) 12/15/17 15:30 Urine Nitrate NEGATIVE (NEGATIVE) 12/15/17 15:30 Urine Bilirubin NEGATIVE (NEGATIVE) 12/15/17 15:30 Urine Urobilinogen 0.2 E.U./dL (0.2 - 1.0) 12/15/17 15:30 Ur Leukocyte Esterase NEGATIVE (NEGATIVE) 12/15/17 15:30 Urine RBC 0-2 /hpf (0-5) 12/15/17 15:30 Urine WBC 0-2 /hpf (0-5) 12/15/17 15:30 Ur Epithelial Cells FEW /lpf (FEW) 12/15/17 15:30 Urine Bacteria OCCASIONAL /hpf (NONE SEEN) 12/15/17 15:30 - Physical Exam Vitals and I&O: Vital Signs Temp 98.1 F 12/20/17 14:00 Pulse 99 12/20/17 14:00 Resp 18 12/20/17 14:00 BP 130/77 12/20/17 14:00 Pulse Ox 98 12/20/17 14:00 Intake & Output 12/19/17 12/20/17 12/20/17 18:59 06:59 18:59 Intake Total 800 60 Balance 800 60 Intake: Oral 800 60 Other: # Voids 3 2 # Bowel Movements 1 0 Active Medications: Current Medications Acetaminophen (Tylenol) 650 mg PO Q4HR PRN PRN Reason: Mild Pain 1-3/ Temp above 100 Stop: 02/13/18 16:56 Acetaminophen (Tylenol Extra Strength) 1,000 mg PO Q4H PRN PRN Reason: Pain (Moderate) Stop: 02/13/18 17:50 Last Admin: 12/19/17 08:38 Dose: 1,000 mg Al Hydrox/Mg Hydrox/Simethicone (Maalox) 30 ml PO Q4HR PRN PRN Reason: GI DISTRESS Stop: 02/13/18 16:56 Atorvastatin Calcium (Lipitor) 10 mg PO HS NANCY; Protocol Stop: 02/13/18 20:59 Last Admin: 12/19/17 21:32 Dose: Not Given Calcium/Vitamin D (Oscal W/Vitamin D) 1 tab PO DAILY NANCY Stop: 02/14/18 08:59 Last Admin: 12/20/17 08:46 Dose: 1 tab Donepezil HCl (Aricept) 10 mg PO DAILY NANCY Stop: 02/18/18 08:59 Last Admin: 12/20/17 08:46 Dose: 10 mg Lorazepam (Ativan) 0.5 mg PO Q4HR PRN; Protocol PRN Reason: Agitation Stop: 01/14/18 16:56 Last Admin: 12/20/17 01:29 Dose: 0.5 mg Magnesium Hydroxide (Milk Of Magnesia) 30 ml PO HS PRN PRN Reason: Constipation Memantine (Namenda) 10 mg PO BID NANCY Stop: 02/14/18 08:59 Last Admin: 12/20/17 08:46 Dose: 10 mg Multivitamins/Vitamin C (Theragran) 1 tab PO DAILY NANCY Stop: 02/14/18 08:59 Last Admin: 12/20/17 08:46 Dose: 1 tab Olanzapine (Zyprexa) 5 mg PO HS NANCY; Protocol Stop: 02/17/18 20:59 Last Admin: 12/19/17 21:33 Dose: Not Given Olanzapine (Zyprexa) 2.5 mg PO DAILY NANCY; Protocol Stop: 02/17/18 16:44 Last Admin: 12/20/17 08:46 Dose: 2.5 mg Vitamin D (Vitamin D3) 2,000 iu PO DAILY NANCY Stop: 02/14/18 08:59 Last Admin: 12/20/17 08:46 Dose: 2,000 iu Zolpidem Tartrate (Ambien) 5 mg PO HS PRN PRN Reason: Insomnia Stop: 02/13/18 16:56 Last Admin: 12/20/17 01:30 Dose: 5 mg General: alert HEENT: NC/AT Neck: Supple Lungs: CTAB Cardiovascular: RRR, Normal S1, Normal S2, without murmur Extremities: excoriation Internal Medicine Assmt/Plan - Plan Plan: cpm Nutritional Asmnt/Malnutr-PDOC - Dietary Evaluation Malnutrition Findings (Please click <Entered> for more info): Nutritional Asmnt/Malnutrition Start: 12/20/17 13: 55 Text: Status: Complete Freq: Protocol: Document 12/20/17 13:55 DYANG (Rec: 12/20/17 14:09 BEATRIZNED FLOYD) Nutritional Asmnt/Malnutrition Patient General Information Nutritional Screening Moderate Risk Diagnosis psychosis Pertinent Medical Hx/Surgical Hx dementia, atrial fibrillation, schizophrenia, hyperlipidemia , osteoarthritis, vit D deficiency Subjective Information Pt confused and laying in bed at time of visit. Pt's serbian speaking; unable to communicate d/t language barrier. Nursing noted PO intake: 75-100% average of all meals. Current Diet Order/ Nutrition Support Pureed; 8 oz milk TID; ensure BID Pertinent Medications lipitor, oscal w/ Vit D, MOM, theragran, Vit D3 Pertinent Labs 12/15: BUN 26, Alb 3.6 Nutritional Hx/Data Height 1.5 m Height (Calculated Centimeters) 149.9 Current Weight (lbs) 43.091 kg Weight (Calculated Kilograms) 43.1 Weight (Calculated Grams) 01177.3 [place] Body Weight 98 lb Body Mass Index (BMI) 19.1 Weight Status Approriate GI Symptoms GI Symptoms None Last BM 12/19 Difficult in: None Food Allergies Yes: pork Skin Integrity/Comment: intact Current %PO Good (75-100%) Estimated Nutritional Goals BEE in Kcals: Using Current wt Calories/Kcals/Kg 25-30 Kcals Calculated [id number] Protein: Using Current wt Protein g/k-1.2 Protein Calculated 43-51 g Fluid: ml [id number] (1 ml/kcal) Nutritional Problem No current Nutrition Prob Problem no nutrition dx at this time Malnutrition Alert Is there a minimum of two criteria No selected? Query Text:Check all the applicable criteria. A minimum of two criteria are recommended for diagnosis of either severe or non-severe malnutrition. Malnutrition Related to Morbid Obesity Malnutrition related to morbid obesity No Intervention/Recommendation Comments 1. Continue with pureed diet as ordered. Continue supplementing Ensure Enlive BID for added kcals to maintain wt. 2. Monitor PO intake, wt, labs and skin integrity 3. F/U as low risk in 7 days, 12/27 Expected Outcomes/Goals Expected Outcomes/Goals 1. PO intake at least 75% of all meals. 2. Wt stability, skin to remain intact, labs to approach normal limits Reviewed by Rachel Duncan
[2017-12-20] MEDS: Atorvastatin Calcium 10 MG TAB PO SCH (21:09)
[2017-12-21] MEDS: Multivitamin Tab PO SCH (08:28)
[2017-12-21] MEDS: Vitamin D3 2,000 IU SGL PO SCH (08:28)
[2017-12-21] MEDS: Calcium Carb/Vit D 500 mg/200 U Tab PO SCH (08:28)
[2017-12-21] MEDS: Acetaminophen 500 MG TAB PO PRN (09:34)
--- NOTE | 2017-12-21 14:23 | Internal Medicine Prog Note ---
Internal Medicine Subjective - Subjective Patient is:: awake, other (still with episodes of agitation ) Per staff patient has:: tolerating meds Internal Medicine Objective - Results Result Diagrams: 12/15/17 14:50 12/15/17 14:50 Recent Labs: Laboratory Last Values WBC 4.8 Th/cmm (4.8-10.8) 12/15/17 14:50 RBC 3.63 Mil/cmm (3.80-5.20) L 12/15/17 14:50 Hgb 11.0 gm/dL (12-16) L 12/15/17 14:50 Hct 32.1 % (41.0-60) L 12/15/17 14:50 MCV 88.6 fl (81-100) 12/15/17 14:50 MCH 30.4 pg (27.0-31.0) 12/15/17 14:50 MCHC Differential 34.3 pg (28.0-36.0) 12/15/17 14:50 RDW 12.0 % (11.5-20.0) 12/15/17 14:50 Plt Count 212 Th/cmm (150-400) 12/15/17 14:50 MPV 7.7 fl 12/15/17 14:50 Neutrophils % 51.9 % (40.0-80.0) 12/15/17 14:50 Lymphocytes % 36.5 % (20.0-50.0) 12/15/17 14:50 Monocytes % 9.2 % (2.0-10.0) 12/15/17 14:50 Eosinophils % 1.9 % (0.0-5.0) 12/15/17 14:50 Basophils % 0.5 % (0.0-2.0) 12/15/17 14:50 Sodium 140 mEq/L (136-145) 12/15/17 14:50 Potassium 4.0 mEq/L (3.5-5.1) 12/15/17 14:50 Chloride 105 mEq/L (98-107) 12/15/17 14:50 Carbon Dioxide 29.4 mEq/L (21.0-31.0) 12/15/17 14:50 Anion Gap 9.6 (7.0-16.0) 12/15/17 14:50 BUN 26 mg/dL (7-25) H 12/15/17 14:50 Creatinine 0.8 mg/dL (0.6-1.2) 12/15/17 14:50 Est GFR ( Amer) TNP 12/15/17 14:50 Est GFR (Non-Af Amer) TNP 12/15/17 14:50 BUN/Creatinine Ratio 32.5 12/15/17 14:50 Glucose 98 mg/dL (70-105) 12/15/17 14:50 Calcium 9.3 mg/dL (8.6-10.3) 12/15/17 14:50 Phosphorus 4.0 mg/dL (2.5-5.0) 12/15/17 14:50 Magnesium 2.3 mg/dL (1.9-2.7) 12/15/17 14:50 Total Bilirubin 0.2 mg/dL (0.3-1.0) L 12/15/17 14:50 AST 17 U/L (13-39) 12/15/17 14:50 ALT 14 U/L (7-52) 12/15/17 14:50 Alkaline Phosphatase 56 U/L (34-104) 12/15/17 14:50 Total Protein 6.8 gm/dL (6.0-8.3) 12/15/17 14:50 Albumin 3.6 gm/dL (3.7-5.3) L 12/15/17 14:50 Globulin 3.2 gm/dL 12/15/17 14:50 Albumin/Globulin Ratio 1.1 (1.0-1.8) 12/15/17 14:50 Triglycerides 123 mg/dL (<150) 12/15/17 14:50 Cholesterol 179 mg/dL (<200) 12/15/17 14:50 LDL Cholesterol Direct 82 mg/dL (75-193) 12/15/17 14:50 HDL Cholesterol 65 mg/dL (23-92) 12/15/17 14:50 Urine Source CLEAN C 12/15/17 15:30 Urine Color YELLOW 12/15/17 15:30 Urine Clarity CLEAR (CLEAR) 12/15/17 15:30 Urine pH 6.5 (4.6 - 8.0) 12/15/17 15:30 Ur Specific [place] <= 1.005 (1.005-1.030) 12/15/17 15:30 Urine Protein NEGATIVE mg/dL (NEGATIVE) 12/15/17 15:30 Urine Glucose (UA) NEGATIVE mg/dL (NEGATIVE) 12/15/17 15:30 Urine Ketones NEGATIVE mg/dL (NEGATIVE) 12/15/17 15:30 Urine Blood NEGATIVE (NEGATIVE) 12/15/17 15:30 Urine Nitrate NEGATIVE (NEGATIVE) 12/15/17 15:30 Urine Bilirubin NEGATIVE (NEGATIVE) 12/15/17 15:30 Urine Urobilinogen 0.2 E.U./dL (0.2 - 1.0) 12/15/17 15:30 Ur Leukocyte Esterase NEGATIVE (NEGATIVE) 12/15/17 15:30 Urine RBC 0-2 /hpf (0-5) 12/15/17 15:30 Urine WBC 0-2 /hpf (0-5) 12/15/17 15:30 Ur Epithelial Cells FEW /lpf (FEW) 12/15/17 15:30 Urine Bacteria OCCASIONAL /hpf (NONE SEEN) 12/15/17 15:30 - Physical Exam Vitals and I&O: Vital Signs Temp 98.2 F 12/21/17 05:45 Pulse 67 12/21/17 05:45 Resp 20 12/21/17 05:45 BP 93/50 12/21/17 05:45 Pulse Ox 97 12/21/17 05:45 Intake & Output 12/20/17 12/21/17 12/21/17 18:59 06:59 18:59 Intake Total 1600 120 Balance 1600 120 Intake: Oral 1600 120 Other: # Voids 4 3 # Bowel Movements 0 Active Medications: Current Medications Acetaminophen (Tylenol) 650 mg PO Q4HR PRN PRN Reason: Mild Pain 1-3/ Temp above 100 Stop: 02/13/18 16:56 Last Admin: 12/20/17 21:10 Dose: 650 mg Acetaminophen (Tylenol Extra Strength) 1,000 mg PO Q4H PRN PRN Reason: Pain (Moderate) Stop: 02/13/18 17:50 Last Admin: 12/21/17 09:34 Dose: 1,000 mg Al Hydrox/Mg Hydrox/Simethicone (Maalox) 30 ml PO Q4HR PRN PRN Reason: GI DISTRESS Stop: 02/13/18 16:56 Atorvastatin Calcium (Lipitor) 10 mg PO HS NANCY; Protocol Stop: 02/13/18 20:59 Last Admin: 12/20/17 21:09 Dose: 10 mg Calcium/Vitamin D (Oscal W/Vitamin D) 1 tab PO DAILY NANCY Stop: 02/14/18 08:59 Last Admin: 12/21/17 08:28 Dose: 1 tab Donepezil HCl (Aricept) 10 mg PO DAILY NANCY Stop: 02/18/18 08:59 Last Admin: 12/21/17 08:28 Dose: 10 mg Lorazepam (Ativan) 0.5 mg PO Q4HR PRN; Protocol PRN Reason: Agitation Stop: 01/14/18 16:56 Last Admin: 12/21/17 08:28 Dose: 0.5 mg Magnesium Hydroxide (Milk Of Magnesia) 30 ml PO HS PRN PRN Reason: Constipation Memantine (Namenda) 10 mg PO BID NANCY Stop: 02/14/18 08:59 Last Admin: 12/21/17 08:28 Dose: 10 mg Multivitamins/Vitamin C (Theragran) 1 tab PO DAILY NANCY Stop: 02/14/18 08:59 Last Admin: 12/21/17 08:28 Dose: 1 tab Olanzapine (Zyprexa) 5 mg PO HS NANCY; Protocol Stop: 02/17/18 20:59 Last Admin: 12/20/17 21:10 Dose: 5 mg Olanzapine (Zyprexa) 2.5 mg PO DAILY NANCY; Protocol Stop: 02/17/18 16:44 Last Admin: 12/21/17 08:28 Dose: 2.5 mg Vitamin D (Vitamin D3) 2,000 iu PO DAILY NANCY Stop: 02/14/18 08:59 Last Admin: 12/21/17 08:28 Dose: 2,000 iu Zolpidem Tartrate (Ambien) 5 mg PO HS PRN PRN Reason: Insomnia Stop: 02/13/18 16:56 Last Admin: 12/20/17 21:11 Dose: 5 mg General: alert HEENT: NC/AT Neck: Supple Lungs: CTAB Cardiovascular: RRR, Normal S1, Normal S2, without murmur Extremities: excoriation Internal Medicine Assmt/Plan - Assessment Assessment: dementia increased agitaion OA vit d def hyperlipidemia - Plan Plan: as per psych continue current treatment Nutritional Asmnt/Malnutr-PDOC - Dietary Evaluation Malnutrition Findings (Please click <Entered> for more info): Nutritional Asmnt/Malnutrition Start: 12/20/17 13: 55 Text: Status: Complete Freq: Protocol: Document 12/20/17 13:55 LUZ (Rec: 12/20/17 14:09 LUZ FLOYD) Nutritional Asmnt/Malnutrition Patient General Information Nutritional Screening Moderate Risk Diagnosis psychosis Pertinent Medical Hx/Surgical Hx dementia, atrial fibrillation, schizophrenia, hyperlipidemia , osteoarthritis, vit D deficiency Subjective Information Pt confused and laying in bed at time of visit. Pt's guamanian speaking; unable to communicate d/t language barrier. Nursing noted PO intake: 75-100% average of all meals. Current Diet Order/ Nutrition Support Pureed; 8 oz milk TID; ensure BID Pertinent Medications lipitor, oscal w/ Vit D, MOM, theragran, Vit D3 Pertinent Labs 12/15: BUN 26, Alb 3.6 Nutritional Hx/Data Height 1.5 m Height (Calculated Centimeters) 149.9 Current Weight (lbs) 43.091 kg Weight (Calculated Kilograms) 43.1 Weight (Calculated Grams) 23547.3 [place] Body Weight 98 lb Body Mass Index (BMI) 19.1 Weight Status Approriate GI Symptoms GI Symptoms None Last BM 12/19 Difficult in: None Food Allergies Yes: pork Skin Integrity/Comment: intact Current %PO Good (75-100%) Estimated Nutritional Goals BEE in Kcals: Using Current wt Calories/Kcals/Kg 25-30 Kcals Calculated 1914-2018 Protein: Using Current wt Protein g/k-1.2 Protein Calculated 43-51 g Fluid: ml [id number] (1 ml/kcal) Nutritional Problem No current Nutrition Prob Problem no nutrition dx at this time Malnutrition Alert Is there a minimum of two criteria No selected? Query Text:Check all the applicable criteria. A minimum of two criteria are recommended for diagnosis of either severe or non-severe malnutrition. Malnutrition Related to Morbid Obesity Malnutrition related to morbid obesity No Intervention/Recommendation Comments 1. Continue with pureed diet as ordered. Continue supplementing Ensure Enlive BID for added kcals to maintain wt. 2. Monitor PO intake, wt, labs and skin integrity 3. F/U as low risk in 7 days, 12/27 Expected Outcomes/Goals Expected Outcomes/Goals 1. PO intake at least 75% of all meals. 2. Wt stability, skin to remain intact, labs to approach normal limits Reviewed by Rachel Duncan
--- NOTE | 2017-12-22 00:05 | Discharge Summary ---
DATE OF DISCHARGE: 12/21/2017 PATIENT'S AGE: 77. SEX: Female. PHYSICIAN: Dr. Chen. FINAL DIAGNOSIS/PRIMARY DIAGNOSIS: Unspecified psychosis. SECONDARY DIAGNOSIS: Dementia, moderate, severe, with psychotic features. REASON FOR HOSPITALIZATION: The patient was admitted to the hospital from [facility] because of increased agitation and irritability and the patient was unable to follow directions. HOSPITAL COURSE: The patient continued to be in angry and in irritable mood. The patient also is having episodes of yelling, screaming, and increased agitation. The patient was given Zyprexa in a dose increased to 2.5 mg in the morning and 5 mg at bedtime. Gradually, the patient's affect was brighter. The patient was less agitated and less irritable. The patient also was interacting more with peers and with others. The patient was discharged from the hospital back to [facility]. Physical exam of the patient was basically within normal. The patient had no major medical problems while in the hospital. Labs were basically within normal. AFTER-DISCHARGE PLANS: The patient will return to [facility] with plans for outpatient treatment and followup in [facility]. EXPECTED OUTCOME AFTER DISCHARGE: Fair if the patient continued to take psychotropic medications and follow up with discharge plans. [facility]# [id number]
== END 2017-12-21 15:45 | DRG 885 ==
LOC: ER 14:38 → GERO 16:00
PROVIDERS: ADMIT Psychiatry & Neurology Psychiatry; ATTEND Psychiatry & Neurology Psychiatry
DX: F29 Unspecified psychosis not due to a substance or known physiological condition (principal); F02.81 Dementia in other diseases classified elsewhere, unspecified severity, with behavioral disturbance; E78.5 Hyperlipidemia, unspecified; M19.90 Unspecified osteoarthritis, unspecified site; E55.9 Vitamin D deficiency, unspecified; G30.9 Alzheimer's disease, unspecified; I48.91 Unspecified atrial fibrillation; Z88.0 Allergy status to penicillin; Z91.018 Allergy to other foods
CPT/HCPCS: 36415-UA; 80053-TC; 80061-TC; 81001-TC; 83036-90; 83735-TC; 84100-TC; 85025-TC; 93005; 97530; J2060; J7051; X3904; Z7610